=== PATIENT | female | born 1945 | race Caucasian/White ===

== ENCOUNTER → 2019-01-22 | Outpatient (CLI) | payer MEDICARE, OTHER ==
--- NOTE | 2019-01-22 15:46 | KCIC ---
MR of the left wrist HISTORY: Left wrist pain and swelling this week. Possible cyst. TECHNIQUE: Routine multiplanar sequences are obtained. FINDINGS: Severe motion degradation. Surface marker placed at the area of concern. No organized fluid collection or measurable cyst is seen in this region. Mild generalized soft tissue and muscle edema around the wrist. Triangular fibrocartilage, scapholunate ligament and lunotriquetral ligament cannot be adequately evaluated due to the motion. Extensor and flexor tendons appear grossly intact without substantial tendon sheath fluid accumulation. No definite aggressive bone destruction or acute fracture. Small effusions at the distal radioulnar joint, radiocarpal joint and metacarpal compartments. IMPRESSION: 1. Exam severely limited by motion degradation. 2. Small joint effusions. 3. Generalized soft tissue and muscle edema could be posttraumatic or due to nonspecific inflammatory/infectious etiology. 4. No measurable cyst in the area of concern. Electronically signed by: Keegan Hernandez MD (01/22/2019 3:43 PM) [id number]
== END | disposition home or self-care (01) ==
LOC: KCIC MRI 12:42
PROVIDERS: ATTEND Family Medicine
DX: L03.116 Cellulitis of left lower limb (principal); M25.432 Effusion, left wrist
CPT/HCPCS: 73221

== ENCOUNTER 2019-04-15 16:52 | Inpatient (IN) | payer MEDICARE, OTHER ==
[~2019-04-15] VITALS: Ht 160 cm; Wt 92.6 kg
[2019-04-15] VITALS (11 sets, daily range): BP systolic 108–170; BP diastolic 52–80
[2019-04-15] MEDS ORDERED: IPRA3AMP29 NEB (18:14)
[2019-04-15] MEDS ORDERED: LACT1CAP2 PO (18:14)
[2019-04-15] MEDS ORDERED: ATOR40TA59 PO (18:14)
[2019-04-15] MEDS ORDERED: INSU100V6 SQ (18:14)
[2019-04-15] MEDS ORDERED: CYCL5TAB PO (18:14)
[2019-04-15] MEDS ORDERED: BUME1TAB3 IV (18:14)
[2019-04-15] MEDS ORDERED: CHOL500050 PO (18:14)
[2019-04-15] MEDS ORDERED: DOCU100C28 PO (18:14)
[2019-04-15] MEDS ORDERED: INSU100V8 SQ (18:14)
[2019-04-15] MEDS ORDERED: FLUO20TA11 PO (18:14)
[2019-04-15] MEDS ORDERED: LOSA-73 PO (18:14)
[2019-04-15] MEDS ORDERED: ASPI81TA59 PO (18:14)
[2019-04-15] MEDS ORDERED: ACET500T68 PO (18:14)
[2019-04-15] MEDS ORDERED: GABA600T7 PO (18:14)
[2019-04-15] MEDS ORDERED: ENOX100D SQ (18:14)
[2019-04-15] MEDS ORDERED: OXYB5TAB10 PO (18:15)
[2019-04-15] MEDS ORDERED: PANT40TA77 PO (18:15)
[2019-04-15] MEDS ORDERED: TRAM50TA PO (18:15)
[2019-04-15] MEDS ORDERED: ROPI1TAB2 PO (18:15)
[2019-04-15] MEDS ORDERED: ZOLP5TAB PO (18:15)
[2019-04-15] MEDS ORDERED: ONDA8TAB15 PO (18:15)
[2019-04-15] MEDS ORDERED: OMEG-129 PO (18:15)
[2019-04-15] MEDS ORDERED: PIPE3.3734 IV (18:15)
[2019-04-15] MEDS ORDERED: MULT-114 PO (18:15)
[2019-04-15] MEDS ORDERED: SIME80TA14 PO (18:15)
[2019-04-15] MEDS ORDERED: MIDO5TAB4 PO (18:15)
[2019-04-15] MEDS ORDERED: VANC125C3 IV (18:15)
[2019-04-15] MEDS ORDERED: POTA10TA6 PO (18:15)
[2019-04-15] MEDS ORDERED: DIPH25TA24 PO (18:15)
[2019-04-15] MEDS ORDERED: MECL-75 PO (18:15)
[2019-04-15] MEDS ORDERED: PIP/TAZO PER PHARMACY MC PRN (18:30)
[2019-04-15] MEDS ORDERED: ACETAMINOPHEN 500 MG TABLET PO PRN (18:30)
[2019-04-15] MEDS ORDERED: ZOLPIDEM 5 MG TABLET. PO PRN (18:30)
[2019-04-15] MEDS ORDERED: ONDANSETRON ODT 4 MG TAB.RAPDIS. PO PRN (19:00)
[2019-04-15] MEDS ORDERED: MECLIZINE HCL 12.5 MG TABLET. PO PRN (19:00)
[2019-04-15] MEDS: VANCOMYCIN PER PHARMACY MC PRN (19:03)
[2019-04-15] MEDS: IPRATRPIUM/ALBUTEROL 0.5/2.5MG 3 ML NEBU. NEB SCH (20:00)
[2019-04-15] MEDS: SIMETHICONE 80 MG TAB.CHEW PO SCH (21:00)
[2019-04-15] MEDS: INSULIN GLARGINE SYRINGE. SQ SCH (21:00)
[2019-04-15] MEDS: LACTOBACILLUS RHAMNOSUS GG 1 CAPSULE. PO SCH (22:58)
[2019-04-15] MEDS: FLUoxetine HCL 20 MG CAPSULE PO SCH (22:58)
[2019-04-15] MEDS: diphenhydrAMINE HCL 25 MG CAPSULE PO SCH (22:58)
[2019-04-15] MEDS: CYCLOBENZAPRINE 10 MG TABLET. PO SCH ×2 (22:58→23:07)
[2019-04-15] MEDS: ATORVASTATIN CALCIUM 40 MG TABLET. PO SCH (22:58)
[2019-04-15] MEDS: DOCUSATE SODIUM 100 MG CAPSULE. PO SCH (22:58)
[2019-04-15] MEDS: rOPINIRole 1 MG TABLET. PO SCH (22:58)
[2019-04-15] MEDS: traMADol 50 MG TABLET PO SCH (22:59)
[2019-04-15] MEDS: VANCOMYCIN 1.25 GM in IV NORMAL SALINE 250ML 250 ML IV SCH (23:00)
[2019-04-15] MEDS: PIPERACILLIN/TAZOBACTAM 3.375 GM in IV NORMAL SALINE 50ML 50 ML IV SCH (23:00)
[2019-04-15] MEDS: GABAPENTIN 300 MG CAPSULE. PO SCH (23:07)
[2019-04-15] MEDS: OXYBUTYNIN CHLORIDE 5 MG TABLET PO SCH (23:07)
[2019-04-16] VITALS (30 sets, daily range): BP systolic 72–177; BP diastolic 46–96
[2019-04-16] MEDS: PIPERACILLIN/TAZOBACTAM 3.375 GM in IV NORMAL SALINE 50ML 50 ML IV SCH ×4 (03:19→18:04)
[2019-04-16 05:19] LABS: BASO % 1 % (0-3); EOS % 1 % (0-3); HEMOGLOBIN 9.5 g/dL (12.0-15.5); LYMPH # 0.4 x10^3/uL (1.0-4.8); LYMPH % 10 % (24-48); MEAN CORPUSCULAR HEMOGLOBIN 27 pg (25-35); MEAN CORPUSCULAR HGB CONC 32 g/dL (31-37); MEAN CORPUSCULAR VOLUME 85 fL (79-100); MONO # 0.3 x10^3/uL (0.0-1.1); MONO % 8 % (0-9); NEUT # 3.1 x10^3/uL (1.8-7.7); NEUT % 81 % (31-73); PLATELET COUNT 234 x10^3/uL (140-400); RED BLOOD COUNT 3.54 x10^6/uL (3.50-5.40); RED CELL DISTRIBUTION WIDTH 16.4 % (11.5-14.5); WHITE BLOOD COUNT 3.9 x10^3/uL (4.0-11.0)
[2019-04-16] MEDS: traMADol 50 MG TABLET PO SCH ×2 (05:47→20:52)
[2019-04-16 05:54] LABS: CALCIUM 8.2 mg/dL (8.5-10.1); CREATININE 1.1 mg/dL (0.6-1.0); GFR 48.4; POTASSIUM 3.7 mmol/L (3.5-5.1)
--- NOTE | 2019-04-16 07:38 | HP ---
ADMIT DATE: HISTORY OF PRESENT ILLNESS: The patient is a 74-year-old female patient, who was transferred yesterday from [facility], where she was admitted to the ICU. She actually originally presented to the Emergency Room of [facility] because of increased shortness of breath, where she was extensively evaluated. Her V/Q scan was positive with a high probability for pulmonary emboli. The patient was breathing in the 70 percentile, although with 4 L, she is up in the 90s. The patient is feeling a little better. The patient continued to desaturate during the night and she did bring her CPAP. Her lactic acid was also elevated. She was started on vancomycin and piperacillin for pneumonia as well as Lovenox and was transferred to [facility] ICU for further evaluation and treatment. She continued to be extremely tachypneic, desaturates on room air, requires FiO2 of 40% on BiPAP machine to maintain her oxygen saturation more than 90%. Her blood gases showed that her pH on the transfer was 7.37, pCO2 of 54, pO2 of 72, bicarbonate 31 and oxygen saturation was 93% on FiO2 of 40%. Her influenza A and B were negative and her chemistry was mostly unremarkable. PAST MEDICAL HISTORY: Significant for hypertension; chronic diastolic congestive heart failure, ejection fraction an echocardiogram done on 08/01 showed preserved left ventricular systolic function; she has type 2 diabetes; hyperlipidemia. PAST SURGICAL HISTORY: Significant for apparently partial colectomy and colostomy. She was unable to mention other surgical procedures. ALLERGIES: SHE IS ALLERGIC TO ADHESIVE TAPE, IODINE AND LIRAGLUTIDE. MEDICATIONS: She is currently on the following medications: She is on diphenhydramine 25 mg twice a day, ipratropium bromide/albuterol sulfate twice a day, midodrine 5 mg twice a day, cyclobenzaprine 5 mg twice a day, atorvastatin calcium 40 mg at bedtime, omega-3 fatty acid 1000 mg capsules once a day, losartan potassium 50 mg daily, aspirin 81 mg once a day, tramadol 50 mg twice a day, gabapentin 600 mg twice a day, fluoxetine 20 mg twice a day, Ambien 5 mg at bedtime, Requip 1 mg twice a day, torsemide 10 mg once a day, potassium 8 mEq once a day, she is on simethicone 125 mg twice a day, docusate sodium 100 mg at bedtime, meclizine 25 mg every 8 hours, omeprazole 40 mg twice a day. FAMILY HISTORY: Noncontributory. SOCIAL HISTORY: She is , lives with her . REVIEW OF SYSTEMS: As per history of present illness. PHYSICAL EXAMINATION: GENERAL: On arrival to the ICU in [facility], the patient was somewhat pale. No jaundice, cyanosis or thyromegaly. No jugular venous distention. No lower limb edema. VITAL SIGNS: Her heart rate was 88, blood pressure was 122/58, temperature was 98.5, respiratory rate was 18 and oxygen saturation was 93% on BiPAP machine with an FiO2 of 40%. HEAD, EYES, EARS, NOSE AND THROAT: Normocephalic, atraumatic. NECK: Supple. HEART: Showed normal first and second heart sounds. No gallop or murmur. CHEST: Clear to auscultation. No crepitation or rhonchi. ABDOMEN: Distended, soft, nontender. NEUROLOGICAL: She is awake, alert, responding appropriately. All cranial nerves intact. EXTREMITIES: She moves extremities without difficulty. LABORATORY DATA: Her lab work at [facility] showed a white cell count 5800, hemoglobin 9.2, hematocrit 29, MCV 84 and platelet count 272,000 with normal manual differential. Her chemistry showed a serum sodium 136, potassium 3.8, chloride 99, bicarbonate 29, anion gap of 8, BUN 18, creatinine 1.1, estimated GFR was 48 mL per minute, her glucose was 214, calcium was 8.2. Total bilirubin, AST, ALT, alkaline phosphatase were normal. CK was only 216. Troponin was 0.049. Beta natriuretic peptide was 4067. Total protein 6, albumin 2.2. Her blood gases showed a pH of 7.37, pCO2 of 54, pO2 of 72, bicarbonate 31, oxygen saturation was 93% on FiO2 of 40%. Her influenza A and B were negative. Her V/Q scan showed that the patient has mismatch defects at the right lung base, high probability for pulmonary embolism. She did have a chest x-ray, which basically showed diffuse right greater than left central predominant interstitial and alveolar infiltrates and prominent cardiac silhouette. She had Doppler venous ultrasound of both lower extremities, which showed no evidence of deep vein thrombosis. The repeat chest x-ray showed that the cardiomediastinal silhouette is similar in appearance; there is increased alveolar airspace disease in the right lung base; patchy interstitial opacities are noted at the left lung base. ASSESSMENT AND PLAN: The patient was transferred to [facility] with acute hypoxic respiratory failure, bilateral pneumonic infiltrates, and high probability V/Q scan for pulmonary embolism. She was continued on vancomycin and Zosyn, continued on Lovenox 1 mg/kg subcutaneously twice a day. We will continue obviously with nebulized albuterol and Atrovent and all other medications. We will consult the bark peeler and perhaps also the header set up operator. She had an element of possible [id number] diastolic congestive heart failure. SAMY OCONNOR MD DR: TRACEE/eduard JOB#: [id number] / [id number]
[2019-04-16] MEDS ORDERED: MIDODRINE 5 MG TABLET PO SCH (08:00)
[2019-04-16] MEDS: IPRATRPIUM/ALBUTEROL 0.5/2.5MG 3 ML NEBU. NEB SCH ×4 (08:13→20:34)
[2019-04-16] MEDS: ASPIRIN CHEWABLE 81 MG TABLET. PO SCH (08:19)
[2019-04-16] MEDS: rOPINIRole 1 MG TABLET. PO SCH ×2 (08:19→20:51)
[2019-04-16] MEDS: diphenhydrAMINE HCL 25 MG CAPSULE PO SCH ×2 (08:19→20:52)
[2019-04-16] MEDS: CYCLOBENZAPRINE 10 MG TABLET. PO SCH ×2 (08:19→20:51)
[2019-04-16] MEDS: GABAPENTIN 300 MG CAPSULE. PO SCH ×2 (08:19→20:51)
[2019-04-16] MEDS: FLUoxetine HCL 20 MG CAPSULE PO SCH ×2 (08:20→20:52)
[2019-04-16] MEDS: MULTIVITAMIN with MINERAL TABLET. PO SCH (08:20)
[2019-04-16] MEDS: SIMETHICONE 80 MG TAB.CHEW PO SCH ×2 (08:20→20:51)
[2019-04-16] MEDS: LOSARTAN POTASSIUM 50 MG TABLET. PO SCH (08:21)
[2019-04-16] MEDS: POTASSIUM CHLORIDE 10 MEQ TABLET.ER. PO SCH (08:21)
[2019-04-16] MEDS: LACTOBACILLUS RHAMNOSUS GG 1 CAPSULE. PO SCH ×2 (08:21→20:51)
[2019-04-16] MEDS: PANTOPRAZOLE 40 MG TABLET.DR. PO SCH (08:21)
[2019-04-16] MEDS: BUMETANIDE 1 MG/4 ML VIAL. IV SCH ×2 (08:22→15:55)
[2019-04-16] MEDS: OXYBUTYNIN CHLORIDE 5 MG TABLET PO SCH ×3 (08:23→20:51)
[2019-04-16] MEDS: INSULIN GLARGINE SYRINGE. SQ SCH ×2 (08:23→20:52)
[2019-04-16] MEDS: INSULIN LISPRO 300 UNITS/3 ML VIAL. SQ SCH ×3 (08:25→18:06)
--- NOTE | 2019-04-16 08:43 | PN ---
DATE: 04/16/2019 SUBJECTIVE: The patient is a 74-year-old female patient who was transferred yesterday from [facility] where she was admitted with acute hypoxic respiratory failure, bilateral pulmonary infiltrate and high probability V/Q scan for pulmonary embolism. She was started on antibiotics in the form of vancomycin and Zosyn as well as Lovenox and was transferred to [facility] as she continued to desaturate and might require eventually intubation. She was on BiPAP machine that she apparently refused to keep it last night. When I saw her this morning, she was resting slightly propped up in bed, continued to be slightly tachypneic, but denied any chest pain. She is maintaining her oxygen saturation at 90% on 3 liters of oxygen by nasal cannula. PHYSICAL EXAMINATION: GENERAL: When I examined her, she was pale, but no jaundice, cyanosis or thyromegaly. No jugular venous distention. No lower limb edema. VITAL SIGNS: Her heart rate was 90, blood pressure was 141/55, temperature 97.8, respiratory rate 25, and oxygen saturation was 87% on room air, 90% on 3 liters of oxygen by nasal cannula. HEAD, EYES, EARS, NOSE AND THROAT: Showed normocephalic, atraumatic. NECK: Supple. HEART: Showed normal first and second heart sounds. No gallop or murmur. CHEST: Showed central trachea, equal bilateral expansion, air entry, vesicular sounds. I really could not appreciate any crepitation or rhonchi anteriorly. She has bilateral basal crepitation posteriorly. ABDOMEN: Distended, soft, nontender. NEUROLOGIC: She is awake, alert, responding appropriately. All cranial nerves intact. She moves all extremities without difficulty. LABORATORY DATA: Her lab work this morning showed a serum sodium 138, potassium 3.7, chloride 100, bicarbonate 34, anion gap of 4, BUN 17, creatinine was 1.1, estimated GFR was 48 mL per minute. Her glucose was 158, calcium was 8.2. White cell count was 3900, hemoglobin 9.5, hematocrit 30, MCV 85 and platelet count of 234,000. ASSESSMENT: In summary, this is a 74-year-old female patient who was transferred from [facility] with: 1. Acute hypoxic respiratory failure. 2. Chronic obstructive pulmonary disease exacerbation. 3. Bilateral lung infiltrate. 4. High probability V/Q scan for pulmonary embolism. CT angio of the chest could not be done as the patient is ALLERGIC TO IODINE AND IODINE CONTAINING PRODUCTS. She is also known to have chronic diastolic congestive heart failure as well as hyperlipidemia. PLAN: My plan is to obviously continue with all her medications. Continue with IV antibiotic. Continue with Lovenox. I will consult the director of medicare as well as the global professional as I feel that heart failure is probably contributing to her clinical presentation. I will discuss with Dr. Moreira whether it is worthwhile to desensitize her with steroids to do the CT angiogram to confirm or refute the pulmonary embolism. SAMY OCONNOR MD DR: TRACEE/eduard JOB#: [id number] / [id number]
[2019-04-16] MEDS: OMEGA-3 FATTY ACIDS/FISH OIL 1,000 MG CAPSULE. PO SCH (09:00)
--- NOTE | 2019-04-16 10:52 | PDOC2 ---
MICHELLE RANDOLPH DECK SCALER 04/16/19 1052: CARDIAC CONSULT DATE OF CONSULT Date of Consult DATE: 04/16/19 TIME: 10:30 REASON FOR CONSULT Reason for Consult: CHF REFERRING PHYSICIAN Referring Physician: Julian SOURCE Source: Chart review, Patient HISTORY OF PRESENT ILLNESS HISTORY OF PRESENT ILLNESS This is a 74 yo female admitted initially at [facility] then transferred to [facility] for further treatment of multiple issues including pneumonia, AECOPD and potentially PE. CTA chest could not be done due to iodine allergy. Reports the last 4 days she has been getting increasingly SOA. She has been coughing but could not expectorate. Had some chills but no recorded fever. No significant leg swelling. Denies any chest pain. She did have some bowel obstruction treated at [facility] 2 weeks ago. Presently she is still SOA and still coughing. Lately she has been weak and her appetite has been off. PAST MEDICAL HISTORY Cardiovascular: AFIB, CAD, CHF, HTN, Hyperlipidemia Pulmonary: COPD, Other ([place]) CENTRAL NERVOUS SYSTEM: Other (No pertinent history) GI: GERD, Inflam bowel disease (chrons) Heme/Onc: Anemia NOS Hepatobiliary: No pertinent hx Psych: Anxiety Musculoskeletal: Osteoarthritis Rheumatologic: No pertinent hx Infectious disease: No pertinent hx ENT: No pertinent hx Renal/: Chronic renal insuff Endocrine: Diabetes (2) Dermatology: No pertinent hx PAST SURGICAL HISTORY Past Surgical History: Cataract Removal, Total knee replacement (bilateral), Colectomy, Other (cardiac ablation; ileostomy; PCI/stent) FAMILY HISTORY Family History: Coronary Artery Disease SOCIAL HISTORY Smoke: Quit ALCOHOL: none Drugs: None Lives: with Family CURRENT MEDICATIONS CURRENT MEDICATIONS Current Medications Medications (Trade) Dose Ordered Sig/Phillip Route PRN Reason Start Time Stop Time Status Last Admin Dose Admin Aspirin (Children'S Aspirin) 81 mg DAILY PO 04/16/19 09:00 04/16/19 08:19 Atorvastatin Calcium (Lipitor) 40 mg HS PO 04/15/19 21:00 04/15/19 22:58 Docusate Sodium (Colace) 100 mg QHS PO 04/15/19 21:00 04/15/19 22:58 Enoxaparin Sodium (Lovenox 100mg Syringe) 90 mg BID SQ 04/15/19 21:00 04/16/19 08:23 Albuterol/ Ipratropium (Duoneb) 3 ml RTQID NEB 04/15/19 20:00 04/16/19 08:13 Losartan Potassium (Cozaar) 50 mg DAILY PO 04/16/19 09:00 04/16/19 08:21 Midodrine (Proamatine) 5 mg BIDWMEALS PO 04/16/19 08:00 04/16/19 08:20 Oxybutynin Chloride (Ditropan) 5 mg TID PO 04/15/19 21:00 04/16/19 08:23 Pantoprazole Sodium (Protonix) 40 mg DAILYAC PO 04/16/19 07:30 04/16/19 08:21 Ropinirole HCl (Requip) 1 mg BID PO 04/15/19 21:00 04/16/19 08:19 Simethicone (Gas-X) 120 mg BID PO 04/15/19 21:00 04/16/19 08:20 Tramadol HCl (Ultram) 50 mg BID PO 04/15/19 21:00 04/16/19 05:47 Zolpidem Tartrate (Ambien) 5 mg PRN QHS PRN PO INSOMNIA 04/15/19 18:30 04/15/19 23:07 Cyclobenzaprine HCl (Flexeril) 5 mg BID PO 04/15/19 19:00 04/16/19 08:19 Diphenhydramine HCl (Benadryl) 25 mg BID PO 04/15/19 21:00 04/16/19 08:19 Fluoxetine HCl (PROzac) 20 mg BID PO 04/15/19 21:00 04/16/19 08:20 Gabapentin (Neurontin) 600 mg BID PO 04/15/19 21:00 04/16/19 08:19 Lactobacillus Rhamnosus (Culturelle) 1 cap BID PO 04/15/19 21:00 04/16/19 08:21 Multivitamins (Thera M Plus) 1 tab DAILY PO 04/16/19 09:00 04/16/19 08:20 Fish Oil (Fish Oil) 1,000 mg DAILY PO 04/16/19 09:00 04/16/19 09:00 Potassium Chloride (Klor-Con) 10 meq DAILYWBKFT PO 04/16/19 08:00 04/16/19 08:21 Vancomycin HCl (Vanco Per Pharmacy) 1 each PRN DAILY PRN MC SEE COMMENTS 04/15/19 18:30 04/15/19 19:03 Bumetanide (Bumex) 1 mg BID92 IV 04/16/19 09:00 04/16/19 08:22 Insulin Human Lispro (HumaLOG) 0-9 UNITS TIDWMEALS SQ 04/16/19 08:00 04/16/19 08:25 Piperacillin Sod/ Tazobactam Sod 3.375 gm/Sodium Chloride 50 ml @ 100 mls/hr Q6H IV 04/15/19 20:00 04/16/19 05:47 Vancomycin HCl 1.25 gm/Sodium Chloride 250 ml @ 167 mls/hr Q24H IV 04/15/19 22:00 04/15/19 23:00 ALLERGIES ALLERGIES: Coded Allergies: Iodine and Iodide Containing Produc (Verified Allergy, Severe, 04/15/19) adhesive tape (Verified Allergy, Intermediate, 04/15/19) liraglutide (Verified Allergy, Intermediate, 04/15/19) ROS Review of System 14 point ROS evaluated with pertinent positives noted per HPI PHYSICAL EXAM General: Alert, Oriented X3, Cooperative, mild distress HEENT: Atraumatic, Mucous membr. moist/pink Lungs: Other (diffuse rhonchi with some wheeze) Heart: Regular rate (SR), Other (distnat heart sounds, unable to appreciate fully due to adventitious sounds) Abdomen: Soft, No tenderness Extremities: No cyanosis, No edema Skin: No breakdown, No significant lesion Neuro: Normal speech, Sensation intact Psych/Mental Status: Mental status NL, Mood NL MUSCULOSKELETAL: Osteoarthritic changes both hands VITALS/I&O VITALS/I&O: Vital Signs Date Time Temp Pulse Resp B/P (MAP) Pulse Ox O2 Delivery O2 Flow Rate FiO2 04/16/19 08:21 104 140/57 04/16/19 08:14 92 Nasal Cannula 3.0 04/16/19 06:47 28 04/16/19 04:00 97.8 97.8 I & O 04/15/19 04/15/19 04/16/19 15:00 23:00 07:00 Intake Total 100 ml 450 ml Output Total 700 ml 285 ml Balance -600 ml 165 ml LABS Lab: Laboratory Tests Test 04/15/19 23:22 04/16/19 05:05 04/16/19 08:17 Glucose (Fingerstick) 97 mg/dL (70-99) 164 mg/dL (70-99) H White Blood Count 3.9 x10^3/uL (4.0-11.0) L Red Blood Count 3.54 x10^6/uL (3.50-5.40) Hemoglobin 9.5 g/dL (12.0-15.5) L Hematocrit 30.0 % (36.0-47.0) L Mean Corpuscular Volume 85 fL (79-100) Mean Corpuscular Hemoglobin 27 pg (25-35) Mean Corpuscular Hemoglobin Concent 32 g/dL (31-37) Red Cell Distribution Width 16.4 % (11.5-14.5) H Platelet Count 234 x10^3/uL (140-400) Neutrophils (%) (Auto) 81 % (31-73) H Lymphocytes (%) (Auto) 10 % (24-48) L Monocytes (%) (Auto) 8 % (0-9) Eosinophils (%) (Auto) 1 % (0-3) Basophils (%) (Auto) 1 % (0-3) Neutrophils # (Auto) 3.1 x10^3/uL (1.8-7.7) Lymphocytes # (Auto) 0.4 x10^3/uL (1.0-4.8) L Monocytes # (Auto) 0.3 x10^3/uL (0.0-1.1) Eosinophils # (Auto) 0.0 x10^3/uL (0.0-0.7) Basophils # (Auto) 0.0 x10^3/uL (0.0-0.2) Sodium Level 138 mmol/L (136-145) Potassium Level 3.7 mmol/L (3.5-5.1) Chloride Level 100 mmol/L (98-107) Carbon Dioxide Level 34 mmol/L (21-32) H Anion Gap 4 (6-14) L Blood Urea Nitrogen 17 mg/dL (7-20) Creatinine 1.1 mg/dL (0.6-1.0) H Estimated GFR (Cockcroft-Gault) 48.4 Glucose Level 158 mg/dL (70-99) H Calcium Level 8.2 mg/dL (8.5-10.1) L Laboratory Tests 04/16/19 05:05 Laboratory Tests 04/16/19 05:05 ASSESSMENT/PLAN ASSESSMENT/PLAN 1. AECOPD with with pneumonia 2. Acute on chronic diastolic CHF 3. V/Q high probability for PE: neg venous doppler for DVT 4. DM2 5. HTN: controlled 6. HLP 7. CAD: past stent about [address] [place] [facility] [place] 8. Hx of chrons: bowel obstruction treated at [facility] 2 weeks ago 9. Iodine allergy: rash. hence CTA was not done 10. Hx of AFIB: [place] [facility] Recommendations 1. Continue lovenox 2. Antibiiotic therapy on board. Pulmonary consult 3. diuretic therapy. TTE, EKG 4. Supportive care LIMA SNYDER MD 04/16/19 2014: CARDIAC CONSULT ASSESSMENT/PLAN ASSESSMENT/PLAN Patient seen and examined. Agree with above nurse practitioner note. Echocardiogram demonstrates normal LV function. Continue treatment for high risk V/Q scan suggestive of pulmonary embolus. Supportive care for now. We'll follow along. MICHELLE RANDOLPH APRN Apr 16, 2019 10:52 LIMA SNYDER MD Apr 16, 2019 20:14
--- NOTE | 2019-04-16 11:25 | EKG ---
[facility] [address] [place] [address] Test Date: 2019-04-16 Test Time: 11:22:12 Pat Name: SLIME WU Department: Room: 111 1 Gender: F Recruiting Scheduler: : 1945 Requested By: MICHELLE RANDOLPH Order Number: [id number] Reading MD: Measurements Intervals [place] Rate: 92 P: 0 MA: 194 QRS: 36 QRSD: 116 T: 36 QT: 384 QTc: 480 Interpretive Statements SINUS RHYTHM ATRIAL PREMATURE COMPLEX(ES) INCOMPLETE RIGHT BUNDLE BRANCH BLOCK PROLONGED QT NO SPECIFIC ECG ABNORMALITIES RI6.02 No previous ECG available for comparison
--- NOTE | 2019-04-16 12:30 | NUR ---
Urine turned to a pink/nagy color this AM. Pt producing adequate amount of urine. Pt on Lovenox BID so Dr. Us notified on color change. Dr. Us okay with color right now. May need bladder irrigation or urology consult if does not clear up.
[2019-04-16] MEDS: VANCOMYCIN PER PHARMACY MC PRN (12:44)
--- NOTE | 2019-04-16 13:11 | PDOC ---
PULMONARY PROGRESS NOTES Vitals Vital Signs Date Time Temp Pulse Resp B/P (MAP) Pulse Ox O2 Delivery O2 Flow Rate FiO2 04/16/19 12:00 12.0 04/16/19 12:00 Venturi Mask 04/16/19 11:07 96 04/16/19 11:00 94 31 120/59 (79) 04/16/19 04:00 97.8 97.8 Labs Laboratory Tests Test 04/15/19 23:22 04/16/19 05:05 04/16/19 08:17 04/16/19 11:52 Glucose (Fingerstick) 97 mg/dL (70-99) 164 mg/dL (70-99) 138 mg/dL (70-99) White Blood Count 3.9 x10^3/uL (4.0-11.0) Red Blood Count 3.54 x10^6/uL (3.50-5.40) Hemoglobin 9.5 g/dL (12.0-15.5) Hematocrit 30.0 % (36.0-47.0) Mean Corpuscular Volume 85 fL (79-100) Mean Corpuscular Hemoglobin 27 pg (25-35) Mean Corpuscular Hemoglobin Concent 32 g/dL (31-37) Red Cell Distribution Width 16.4 % (11.5-14.5) Platelet Count 234 x10^3/uL (140-400) Neutrophils (%) (Auto) 81 % (31-73) Lymphocytes (%) (Auto) 10 % (24-48) Monocytes (%) (Auto) 8 % (0-9) Eosinophils (%) (Auto) 1 % (0-3) Basophils (%) (Auto) 1 % (0-3) Neutrophils # (Auto) 3.1 x10^3/uL (1.8-7.7) Lymphocytes # (Auto) 0.4 x10^3/uL (1.0-4.8) Monocytes # (Auto) 0.3 x10^3/uL (0.0-1.1) Eosinophils # (Auto) 0.0 x10^3/uL (0.0-0.7) Basophils # (Auto) 0.0 x10^3/uL (0.0-0.2) Sodium Level 138 mmol/L (136-145) Potassium Level 3.7 mmol/L (3.5-5.1) Chloride Level 100 mmol/L (98-107) Carbon Dioxide Level 34 mmol/L (21-32) Anion Gap 4 (6-14) Blood Urea Nitrogen 17 mg/dL (7-20) Creatinine 1.1 mg/dL (0.6-1.0) Estimated GFR (Cockcroft-Gault) 48.4 Glucose Level 158 mg/dL (70-99) Calcium Level 8.2 mg/dL (8.5-10.1) Laboratory Tests Test 04/15/19 23:22 04/16/19 05:05 04/16/19 08:17 04/16/19 11:52 Glucose (Fingerstick) 97 mg/dL (70-99) 164 mg/dL (70-99) 138 mg/dL (70-99) White Blood Count 3.9 x10^3/uL (4.0-11.0) Red Blood Count 3.54 x10^6/uL (3.50-5.40) Hemoglobin 9.5 g/dL (12.0-15.5) Hematocrit 30.0 % (36.0-47.0) Mean Corpuscular Volume 85 fL (79-100) Mean Corpuscular Hemoglobin 27 pg (25-35) Mean Corpuscular Hemoglobin Concent 32 g/dL (31-37) Red Cell Distribution Width 16.4 % (11.5-14.5) Platelet Count 234 x10^3/uL (140-400) Neutrophils (%) (Auto) 81 % (31-73) Lymphocytes (%) (Auto) 10 % (24-48) Monocytes (%) (Auto) 8 % (0-9) Eosinophils (%) (Auto) 1 % (0-3) Basophils (%) (Auto) 1 % (0-3) Neutrophils # (Auto) 3.1 x10^3/uL (1.8-7.7) Lymphocytes # (Auto) 0.4 x10^3/uL (1.0-4.8) Monocytes # (Auto) 0.3 x10^3/uL (0.0-1.1) Eosinophils # (Auto) 0.0 x10^3/uL (0.0-0.7) Basophils # (Auto) 0.0 x10^3/uL (0.0-0.2) Sodium Level 138 mmol/L (136-145) Potassium Level 3.7 mmol/L (3.5-5.1) Chloride Level 100 mmol/L (98-107) Carbon Dioxide Level 34 mmol/L (21-32) Anion Gap 4 (6-14) Blood Urea Nitrogen 17 mg/dL (7-20) Creatinine 1.1 mg/dL (0.6-1.0) Estimated GFR (Cockcroft-Gault) 48.4 Glucose Level 158 mg/dL (70-99) Calcium Level 8.2 mg/dL (8.5-10.1) Medications Active Scripts Medications Dose Route/Sig Max Daily Dose Days Date Category Tramadol Hcl 50 Mg Tablet 50 Mg PO BID 04/15/19 Reported Ropinirole Hcl 1 Mg Tablet 1 Mg PO BID 04/15/19 Reported Diphenhydramine Hcl 25 Mg Tablet 25 Mg PO BID 04/15/19 Reported Ambien (Zolpidem Tartrate) 5 Mg Tablet 5 Mg PO PRN QHS PRN 04/15/19 Reported Vancomycin Hcl 125 Mg Capsule 1.25 Gm IV DAILY 04/15/19 Reported Simethicone 80 Mg Tab.chew 120 Mg PO BID 04/15/19 Reported Klor-Con 10 (Potassium Chloride) 10 Meq Tablet.er 10 Meq PO DAILY 04/15/19 Reported Piperacil-Tazobact 3.375 Gm Vl (Piperacillin Sodium/Tazobactam) 3.375 Gm Vial 3.375 Gm IV Q6HRS 04/15/19 Reported Protonix (Pantoprazole Sodium) 40 Mg Tablet.dr 40 Mg PO DAILYAC 04/15/19 Reported Oxybutynin Chloride 5 Mg Tablet 5 Mg PO TID 04/15/19 Reported Ondansetron Odt (Ondansetron) 8 Mg Tab.rapdis 8 Mg PO PRN Q12HR PRN 04/15/19 Reported Steele-3 Fish Oil 1,000 mg Sfgl (Steele-3 Fatty Acids/Fish Oil) 1 Each Capsule 1 Cap PO DAILY 04/15/19 Reported Multivitamins With Minerals (Multivitamin With Minerals) 1 Each Tablet 1 Tab PO DAILY 04/15/19 Reported Midodrine Hcl 5 Mg Tablet 5 Mg PO BIDWMEALS 04/15/19 Reported Meclizine Hcl 25 Mg Tablet 25 Mg PO PRN Q8HRS PRN 04/15/19 Reported Losartan Potassium 50 Mg Tablet 50 Mg PO DAILY 04/15/19 Reported Acidophilus (Lactobacillus Acidophilus) 1 Each Capsule 1 Cap PO BID 04/15/19 Reported Duoneb 0.5-3(2.5) Mg/3 Ml (Albuterol/Ipratropium) 3 Ml Ampul.neb 3 Ml NEB QID 04/15/19 Reported Humalog (Insulin Lispro) 100 Unit/1 Ml Vial 0-9 Unit SQ TIDWMEALS 04/15/19 Reported Lantus (Insulin Glargine,Hum.rec.anlog) 100 Unit/1 Ml Vial 30 Unit SQ BID 04/15/19 Reported Gabapentin 600 Mg Tablet 600 Mg PO BID 04/15/19 Reported Fluoxetine Hcl 20 Mg Tablet 20 Mg PO BID 04/15/19 Reported Lovenox (Enoxaparin Sodium) 100 Mg/1 Ml Disp.syrin 90 Mg SQ BID 04/15/19 Reported Docusate Sodium 100 Mg Capsule 100 Mg PO QHS 04/15/19 Reported Cyclobenzaprine Hcl 5 Mg Tablet 5 Mg PO BID 04/15/19 Reported Vitamin D3 (Cholecalciferol (Vitamin D3)) 50,000 Unit Capsule 50,000 Unit PO WEEKLY 04/15/19 Reported Bumetanide 1 Mg Tablet 1 Mg IV BID 04/15/19 Reported Atorvastatin Calcium 40 Mg Tablet 40 Mg PO HS 04/15/19 Reported Acetaminophen 500 Mg Tablet 1,000 Mg PO PRN Q6HRS PRN 04/15/19 Reported Children's Aspirin (Aspirin) 81 Mg Tab.chew 81 Mg PO DAILY 04/15/19 Reported Impression . NOTE DICTATED THANKS SEE ORDERS D/W DR Clemente HOFF D/W SADE DOE MD Apr 16, 2019 13:11
--- NOTE | 2019-04-16 14:45 | NUR ---
SS following for discharge planning. SS reviewed pt chart. Pt is from home with spouse and is currently requiring oxygen. SS will continue to follow for discharge planning.
--- NOTE | 2019-04-16 16:27 | EKG ---
[facility] [address] [place] [address] Test Date: 2019-04-16 Test Time: 16:15:43 Pat Name: SLIME WU Department: Room: 111 1 Gender: F Fiscal Assistant: : 1945 Requested By: SAMY OCONNOR Order Number: [id number] Reading MD: Measurements Intervals [place] Rate: 140 P: ME: QRS: 39 QRSD: 118 T: 36 QT: 320 QTc: 492 Interpretive Statements IRREGULAR RHYTHM, NO P-WAVE FOUND ST & T ABNORMALITY, CONSIDER ANTERIOR ISCHEMIA OR LEFT VENTRICULAR STRAIN ABNORMAL ECG RI6.02 No previous ECG available for comparison
[2019-04-16] MEDS ORDERED: METOPROLOL TARTRATE 5 MG/5 ML VIAL. IVP ONE (16:30)
--- NOTE | 2019-04-16 16:43 | NUR ---
Around 1600, after breathing treatment administered, pt went into Afib RVR. EKG ordered to confirm. Pt sustained from 130-150 HR. ANITA Mcintosh paged and orders received to give Metoprolol 5mg IVP x1 now and re-assess. Metoprolol given at 1635.
--- NOTE | 2019-04-16 16:52 | CONS ---
DATE OF CONSULTATION: 04/16/2019 ATTENDING PHYSICIAN: Jenn Jordan MD CONSULTING PHYSICIAN: Sade Freeman MD REASON FOR CONSULTATION: The patient is seen in pulmonary consultation at the request of Dr. Jordan for acute respiratory failure. HISTORY OF PRESENT ILLNESS: The patient is a 74-year-old that has been short of air now for quite some time. Over the last 2-3 days, she has noticed some increasing shortness of air. Her O2 saturations were down in the 70s when she presented to the Emergency Department at [facility]. The patient was evaluated and underwent V/Q scan, which was reviewed, compatible with high probability scan. She is currently on anticoagulation. She had a chest x-ray, which revealed left lower lobe infiltrate, consolidation. She is also being treated for possibility of pneumonia. She is currently on BiPAP. Her white count was low at 3.9. The patient reports some shaking chills, no hemoptysis, no syncope or near syncopal episode. No paroxysmal nocturnal dyspnea or pedal edema. PAST MEDICAL HISTORY: Chronic heart failure, hypertension, COPD, type 2 diabetes, obesity, and hyperlipidemia. PAST SURGICAL HISTORY: Status post partial colectomy. ALLERGIES: LISTED TO IODINE AND LIRAGLUTIDE. MEDICATIONS: List from home was reviewed. FAMILY HISTORY: No family history of lung disorders. SOCIAL HISTORY: She quit tobacco in 1994. Does not wear oxygen at home. Denies any alcohol intake. REVIEW OF SYSTEMS: As indicated above, otherwise other systems could not be adequately reviewed. The patient is on BiPAP. CURRENT MEDICATION: List was reviewed. PHYSICAL EXAMINATION: VITAL SIGNS: Stable. O2 saturation currently on BiPAP 92%. HEENT: Eyes, the sclerae were nonicteric. NECK: Jugular venous distention could not be assessed secondary to body habitus. CHEST: Full expansion. LUNGS: Crackles and wheezes throughout both lung brink. CARDIOVASCULAR: Regular rate and rhythm with S1, S2. No S3. ABDOMEN: Soft, obese. EXTREMITIES: Minimal edema. NEUROLOGIC: The patient was awake, alert, following commands. A detailed neuro exam was not performed. LABORATORY DATA: Reviewed as indicated above. Chest x-ray and CT as indicated above. IMPRESSION: 1. Acute respiratory failure, multifactorial. 2. Pulmonary embolism. 3. Acute exacerbation of chronic obstructive pulmonary disease. 4. Possible pneumonia, gram negative/gram positive. 5. Abnormal chest x-ray. 6. Type 2 diabetes. 7. Obesity. 8. Coronary artery disease. 9. Chronic diastolic heart failure. PLAN: 1. Continue BiPAP. 2. Empiric antibiotics. 3. Lovenox b.i.d. 90 mg subcutaneous. 4. Continue home meds. 5. Monitor blood sugars. I do appreciate the privilege in sharing in the patient's care. SADE FREEMAN MD DR: JACK/eduard JOB#: [id number] / [id number]
--- NOTE | 2019-04-16 17:41 | NUR ---
Paged Dr. Oates regarding pt still in Afib RVR and Low BP reading now. Orders received to give Digoxin 250 mcg IVP x1 now and in 4HRS. Hold Metoprolol since BP not stable at this time.
[2019-04-16] MEDS ORDERED: DIGOXIN IV 500 MCG/2 ML AMPUL. IV ONE ×2 (18:00→22:00)
[2019-04-16] MEDS ORDERED: NOREPINEPHRINE VIAL 8 MG in IV DEXTROSE 5% 250 ML IV PRN (18:00)
--- NOTE | 2019-04-16 18:26 | CARD ---
MR#: [id number] Date of Study: 04/16/2019 Ordering Physician: MICHELLE RANDOLPH, Referring Physician: MICHELLE RANDOLPH, Tech: Leeanna Graves APPROVED REPORT EXAM: Two-dimensional and M-mode echocardiogram with Doppler and color Doppler. Other Information Quality : FairHR: 102bpm INDICATION Congestive Heart Failure RISK FACTORS Hypertension Hyperlipidemia Diabetes Smoking 2D DIMENSIONS RVDd2.8 (2.9-3.5cm)Left Atrium(2D)3.8 (1.6-4.0cm) IVSd1.4 (0.7-1.1cm)Aortic Root(2D)3.5 (2.0-3.7cm) LVDd4.7 (3.9-5.9cm)LVOT Diameter2.1 (1.8-2.4cm) PWd1.4 (0.7-1.1cm)LVDs2.4 (2.5-4.0cm) FS (%) 47.7 %SV79.6 ml LVEF(%)79.1 (>50%) Aortic Valve AoV Peak Stu.138.5cm/sAoV VTI24.0cm AO Peak GR.7.7mmHgLVOT VTI 18.42cm AO Mean GR.5mmHg Mitral Valve MV E Cremexhq381.1cm/sMV E Peak Gr.6mmHg MV DECEL [id number] A Kdxntsqi15.7cm/s MV E Mean Gr.2mmHgE/A Ratio2.8 Tricuspid Valve TR P. Lkahlbja478me/sRAP VJMWPVIC5koEi TR Peak Gr.50rqYmUXZL60fzOx LEFT VENTRICLE The left ventricle is normal size. There is moderate concentric left ventricular hypertrophy. The lef t ventricular systolic function is normal and the ejection fraction is within normal range. The Eject ion Fraction is 55-60%. Septal motion consistent with conduction abnormality. Otherwise, grossly norm al wall motion. The left ventricular diastolic function and filling is normal for age. RIGHT VENTRICLE The right ventricle is normal size. There is normal right ventricular wall thickness. The right ventr icular systolic function is normal. ATRIA The left atrium size is normal. The right atrium is borderline dilated. The interatrial septum is int act with no evidence for an atrial septal defect or patent foramen ovale as noted on 2-D or Doppler i maging. AORTIC VALVE The aortic valve is normal in structure and function. Doppler and Color Flow revealed no significant aortic regurgitation. There is no significant aortic valvular stenosis. MITRAL VALVE Mitral annular calcification is moderate. There is no evidence of mitral valve prolapse. There is no mitral valve stenosis. Doppler and Color-flow revealed trace mitral regurgitation. TRICUSPID VALVE The tricuspid valve is normal in structure and function. Doppler and Color Flow revealed trace tricus pid regurgitation with an estimated PAP of 28 mmHg. There is no tricuspid valve stenosis. PULMONIC VALVE The pulmonic valve is not well visualized. Doppler and Color Flow revealed trace pulmonic valvular re gurgitation. There is no pulmonic valvular stenosis. GREAT VESSELS The aortic root is normal in size. The IVC is normal in size and collapses >50% with inspiration. PERICARDIAL EFFUSION There is no evidence of significant pericardial effusion. Critical Notification Critical Value: No <Conclusion> The left ventricular systolic function is normal and the ejection fraction is within normal range. Th e Ejection Fraction is 55-60%. Septal motion consistent with conduction abnormality. Otherwise, grossly normal wall motion. Signed by : Tyrel Us, Electronically Approved : 04/16/2019 18:25:53
[2019-04-16] MEDS: DOCUSATE SODIUM 100 MG CAPSULE. PO SCH (20:51)
[2019-04-16] MEDS: ATORVASTATIN CALCIUM 40 MG TABLET. PO SCH (20:51)
[2019-04-16] MEDS: METOPROLOL TART IMMED RELEASE 25 MG TABLET. PO SCH (21:00)
[2019-04-16 21:42] LABS: VANC TR 10.9 mcg/mL (10.0-20.0)
[2019-04-16] MEDS: VANCOMYCIN 1.25 GM in IV NORMAL SALINE 250ML 250 ML IV SCH (23:29)
[2019-04-17] VITALS (28 sets, daily range): BP systolic 84–136; BP diastolic 48–76
[2019-04-17] MEDS: PIPERACILLIN/TAZOBACTAM 3.375 GM in IV NORMAL SALINE 50ML 50 ML IV SCH ×4 (00:17→22:21)
--- NOTE | 2019-04-17 00:47 | NUR ---
Patients HR continues to be 120s-140s. Dr. Us paged and updated on situation, no new orders received at this time as long as patient is feeling fine. Will continue to monitor.
[2019-04-17] MEDS: VANCOMYCIN PER PHARMACY MC PRN ×2 (01:13→15:18)
--- NOTE | 2019-04-17 01:13 | NUR ---
Pharmacy Vancomycin Dosing Note S:Consulted to monitor and dose vancomycin started 04/14/19. O:SLIME WU is a 74 year old F with Pneumonia . Height: 5 feet, 3 inches Weight: 91.775283 kg [place] Body Weight: 52.40 Adjusted Body Weight: 67.84 Dosing Weight: Actual Other Antibiotics: ZOSYN 3.375G IV Q6HRS LABS: Last BUN: 17 Last Creatinine: 1.1 Creatinine Clearance: 47 mL/min Last WBC: 3.9 Last Procalcitonin: - Tmax (past 24 hours): 97.8 Microbiology: BLOOD CX PENDING NO CX FROM [facility] I/O: 550/985 Drug Levels: Last Trough level: 10.9 on 04/16/19 at 2130 Last dose given 04/15/19 at 2300 Vancomycin Dosing: Loading Dose: 2000 mg x1 Dosing Weight: Actual Target Trough: 15-20 A: Based on: TROUGH P: 1. Begin Vancomycin 1250 mg IV q18h 2. Follow up Trough level on 04/19/19 at 0430 3. Pharmacy will continue to monitor, follow and adjust therapy as needed. JOSHUA PASCUAL RPH, 04/17/19 0113 Signed: 04/17/19 at 0113 by JOSHUA PASCUAL RPH PHA
--- NOTE | 2019-04-17 07:41 | PN ---
DATE: 04/17/2019 SUBJECTIVE: The patient is resting almost flat in no apparent distress. The nursing staff stated that she has been restless, pulling all her IV lines and she went into AFib with RVR, for which she received 2 doses of digoxin. The heart rate has slowed down, but the patient continues to be on digoxin. She is also on low-dose Levophed. PHYSICAL EXAMINATION: GENERAL: When I examined her this morning, she was somewhat pale, no jaundice, cyanosis or thyromegaly. No jugular venous distension. No lower limb edema. VITAL SIGNS: Her heart rate was 98, blood pressure was 101/64, temperature was 98, respiratory rate was 24, and oxygen saturation was 95% on 3 liters of oxygen. HEAD, EYES, EARS, NOSE AND THROAT: Showed normocephalic, atraumatic. NECK: Supple. HEART: Showed normal first and second heart sounds. No gallop or murmur. CHEST: Clear to auscultation. No crepitation or rhonchi. ABDOMEN: Distended, soft, nontender. NEUROLOGIC: She was sleepy, but arousable. All cranial nerves are intact. Moves extremities without difficulty. Her intake over the last 24 hours was 550, output was 985. LABORATORY DATA: As of yesterday showed her serum sodium was 138, potassium 3.7, chloride 100, bicarbonate 34, anion gap of 4, BUN 17, creatinine 1.1, estimated GFR was 48 mL per minute. Her glucose 158. Her white cell count was 3900, hemoglobin 9.5, hematocrit 30, MCV 85 and platelet count 234,000. ASSESSMENT: 1. Acute hypoxic respiratory failure. 2. Chronic obstructive pulmonary disease exacerbation. 3. Bilateral lung infiltrate consistent with probably community-acquired pneumonia versus acute on chronic diastolic congestive heart failure. 4. High probability V/Q scan for pulmonary embolism. CT angio of the chest could not be done because she is allergic to IODINE AND IODINE CONTAINING PRODUCTS. 5. New onset atrial fibrillation with rapid ventricular response. 6. Hyperlipidemia. PLAN: To continue with all her antibiotics. Continue with Lovenox. She probably needs to be on long-term anticoagulation given the fact that now she has 2 indication, the atrial fibrillation with RVR as well as high probability V/Q scan for pulmonary embolism. SAMY OCONNOR MD DR: TRACEE/eduard JOB#: [id number] / [id number]
[2019-04-17] MEDS: INSULIN LISPRO 300 UNITS/3 ML VIAL. SQ SCH ×3 (08:00→17:00)
[2019-04-17 08:39] LABS: CALCIUM 8.4 mg/dL (8.5-10.1); CREATININE 1.1 mg/dL (0.6-1.0); GFR 48.4; POTASSIUM 3.8 mmol/L (3.5-5.1)
[2019-04-17] MEDS: ASPIRIN CHEWABLE 81 MG TABLET. PO SCH (08:57)
[2019-04-17] MEDS: diphenhydrAMINE HCL 25 MG CAPSULE PO SCH ×2 (08:57→22:21)
[2019-04-17] MEDS: FLUoxetine HCL 20 MG CAPSULE PO SCH ×2 (08:57→22:21)
[2019-04-17] MEDS: MULTIVITAMIN with MINERAL TABLET. PO SCH (08:57)
[2019-04-17] MEDS: OXYBUTYNIN CHLORIDE 5 MG TABLET PO SCH ×3 (08:57→22:20)
[2019-04-17] MEDS: LACTOBACILLUS RHAMNOSUS GG 1 CAPSULE. PO SCH ×2 (08:57→22:20)
[2019-04-17] MEDS: CYCLOBENZAPRINE 10 MG TABLET. PO SCH ×2 (08:57→22:20)
[2019-04-17] MEDS: PANTOPRAZOLE 40 MG TABLET.DR. PO SCH (08:57)
[2019-04-17] MEDS: SIMETHICONE 80 MG TAB.CHEW PO SCH ×2 (08:57→22:33)
[2019-04-17] MEDS: GABAPENTIN 300 MG CAPSULE. PO SCH ×2 (08:57→22:20)
[2019-04-17] MEDS: rOPINIRole 1 MG TABLET. PO SCH ×2 (08:58→22:20)
[2019-04-17] MEDS: BUMETANIDE 1 MG/4 ML VIAL. IV SCH ×2 (08:58→14:15)
[2019-04-17] MEDS: POTASSIUM CHLORIDE 10 MEQ TABLET.ER. PO SCH (08:58)
[2019-04-17] MEDS: INSULIN GLARGINE SYRINGE. SQ SCH ×2 (08:58→22:22)
[2019-04-17] MEDS: traMADol 50 MG TABLET PO SCH ×2 (08:58→22:21)
[2019-04-17] MEDS: OMEGA-3 FATTY ACIDS/FISH OIL 1,000 MG CAPSULE. PO SCH (08:58)
[2019-04-17] MEDS: LOSARTAN POTASSIUM 50 MG TABLET. PO SCH (09:00)
[2019-04-17] MEDS: IPRATRPIUM/ALBUTEROL 0.5/2.5MG 3 ML NEBU. NEB SCH ×4 (09:41→21:17)
[2019-04-17 10:49] LABS: HEMATOCRIT 32.7 % (36.0-47.0); HEMOGLOBIN 10.2 g/dL (12.0-15.5); RED BLOOD COUNT 3.83 x10^6/uL (3.50-5.40); RED CELL DISTRIBUTION WIDTH 16.1 % (11.5-14.5); WHITE BLOOD COUNT 4.4 x10^3/uL (4.0-11.0)
--- NOTE | 2019-04-17 10:49 | PDOC ---
PULMONARY PROGRESS NOTES Subjective PT MORE AWAKE TODAY NOT MORE SOA NO INCREASE COUGH Vitals Vital Signs Date Time Temp Pulse Resp B/P (MAP) Pulse Ox O2 Delivery O2 Flow Rate FiO2 04/17/19 10:00 118 26 87/63 (71) 94 Nasal Cannula 2.0 04/17/19 08:00 98.0 98.0 ROS: No Nausea, No Chest Pain, No Abdominal Pain, No Increase Cough General: Alert Lungs: Crackles Cardiovascular: S1, S2 Abdomen: Soft Neuro Exam: Alert Extremities: No Edema Skin: Warm Labs Laboratory Tests Test 04/15/19 23:22 04/16/19 05:05 04/16/19 08:17 04/16/19 11:52 Glucose (Fingerstick) 97 mg/dL (70-99) 164 mg/dL (70-99) 138 mg/dL (70-99) White Blood Count 3.9 x10^3/uL (4.0-11.0) Red Blood Count 3.54 x10^6/uL (3.50-5.40) Hemoglobin 9.5 g/dL (12.0-15.5) Hematocrit 30.0 % (36.0-47.0) Mean Corpuscular Volume 85 fL (79-100) Mean Corpuscular Hemoglobin 27 pg (25-35) Mean Corpuscular Hemoglobin Concent 32 g/dL (31-37) Red Cell Distribution Width 16.4 % (11.5-14.5) Platelet Count 234 x10^3/uL (140-400) Neutrophils (%) (Auto) 81 % (31-73) Lymphocytes (%) (Auto) 10 % (24-48) Monocytes (%) (Auto) 8 % (0-9) Eosinophils (%) (Auto) 1 % (0-3) Basophils (%) (Auto) 1 % (0-3) Neutrophils # (Auto) 3.1 x10^3/uL (1.8-7.7) Lymphocytes # (Auto) 0.4 x10^3/uL (1.0-4.8) Monocytes # (Auto) 0.3 x10^3/uL (0.0-1.1) Eosinophils # (Auto) 0.0 x10^3/uL (0.0-0.7) Basophils # (Auto) 0.0 x10^3/uL (0.0-0.2) Sodium Level 138 mmol/L (136-145) Potassium Level 3.7 mmol/L (3.5-5.1) Chloride Level 100 mmol/L (98-107) Carbon Dioxide Level 34 mmol/L (21-32) Anion Gap 4 (6-14) Blood Urea Nitrogen 17 mg/dL (7-20) Creatinine 1.1 mg/dL (0.6-1.0) Estimated GFR (Cockcroft-Gault) 48.4 Glucose Level 158 mg/dL (70-99) Calcium Level 8.2 mg/dL (8.5-10.1) Test 04/16/19 12:45 04/16/19 18:03 04/16/19 20:50 04/16/19 21:20 Lactic Acid Level 0.8 mmol/L (0.4-2.0) Glucose (Fingerstick) 175 mg/dL (70-99) 122 mg/dL (70-99) Vancomycin Level Trough 10.9 mcg/mL (10.0-20.0) Vancomycin Last Dose Date 04/15/19 Vancomycin Last Dose Time 2300 Test 04/17/19 07:55 04/17/19 08:55 Sodium Level 139 mmol/L (136-145) Potassium Level 3.8 mmol/L (3.5-5.1) Chloride Level 99 mmol/L (98-107) Carbon Dioxide Level 34 mmol/L (21-32) Anion Gap 6 (6-14) Blood Urea Nitrogen 16 mg/dL (7-20) Creatinine 1.1 mg/dL (0.6-1.0) Estimated GFR (Cockcroft-Gault) 48.4 Glucose Level 128 mg/dL (70-99) Calcium Level 8.4 mg/dL (8.5-10.1) Glucose (Fingerstick) 107 mg/dL (70-99) Laboratory Tests Test 04/16/19 11:52 04/16/19 12:45 04/16/19 18:03 04/16/19 20:50 Glucose (Fingerstick) 138 mg/dL (70-99) 175 mg/dL (70-99) 122 mg/dL (70-99) Lactic Acid Level 0.8 mmol/L (0.4-2.0) Test 04/16/19 21:20 04/17/19 07:55 04/17/19 08:55 Vancomycin Level Trough 10.9 mcg/mL (10.0-20.0) Vancomycin Last Dose Date 04/15/19 Vancomycin Last Dose Time 2300 Sodium Level 139 mmol/L (136-145) Potassium Level 3.8 mmol/L (3.5-5.1) Chloride Level 99 mmol/L (98-107) Carbon Dioxide Level 34 mmol/L (21-32) Anion Gap 6 (6-14) Blood Urea Nitrogen 16 mg/dL (7-20) Creatinine 1.1 mg/dL (0.6-1.0) Estimated GFR (Cockcroft-Gault) 48.4 Glucose Level 128 mg/dL (70-99) Calcium Level 8.4 mg/dL (8.5-10.1) Glucose (Fingerstick) 107 mg/dL (70-99) Medications Active Scripts Medications Dose Route/Sig Max Daily Dose Days Date Category Tramadol Hcl 50 Mg Tablet 50 Mg PO BID 04/15/19 Reported Ropinirole Hcl 1 Mg Tablet 1 Mg PO BID 04/15/19 Reported Diphenhydramine Hcl 25 Mg Tablet 25 Mg PO BID 04/15/19 Reported Ambien (Zolpidem Tartrate) 5 Mg Tablet 5 Mg PO PRN QHS PRN 04/15/19 Reported Vancomycin Hcl 125 Mg Capsule 1.25 Gm IV DAILY 04/15/19 Reported Simethicone 80 Mg Tab.chew 120 Mg PO BID 04/15/19 Reported Klor-Con 10 (Potassium Chloride) 10 Meq Tablet.er 10 Meq PO DAILY 04/15/19 Reported Piperacil-Tazobact 3.375 Gm Vl (Piperacillin Sodium/Tazobactam) 3.375 Gm Vial 3.375 Gm IV Q6HRS 04/15/19 Reported Protonix (Pantoprazole Sodium) 40 Mg Tablet.dr 40 Mg PO DAILYAC 04/15/19 Reported Oxybutynin Chloride 5 Mg Tablet 5 Mg PO TID 04/15/19 Reported Ondansetron Odt (Ondansetron) 8 Mg Tab.rapdis 8 Mg PO PRN Q12HR PRN 04/15/19 Reported [place]-3 Fish Oil 1,000 mg Sfgl ([place]-3 Fatty Acids/Fish Oil) 1 Each Capsule 1 Cap PO DAILY 04/15/19 Reported Multivitamins With Minerals (Multivitamin With Minerals) 1 Each Tablet 1 Tab PO DAILY 04/15/19 Reported Midodrine Hcl 5 Mg Tablet 5 Mg PO BIDWMEALS 04/15/19 Reported Meclizine Hcl 25 Mg Tablet 25 Mg PO PRN Q8HRS PRN 04/15/19 Reported Losartan Potassium 50 Mg Tablet 50 Mg PO DAILY 04/15/19 Reported Acidophilus (Lactobacillus Acidophilus) 1 Each Capsule 1 Cap PO BID 04/15/19 Reported Duoneb 0.5-3(2.5) Mg/3 Ml (Albuterol/Ipratropium) 3 Ml Ampul.neb 3 Ml NEB QID 04/15/19 Reported Humalog (Insulin Lispro) 100 Unit/1 Ml Vial 0-9 Unit SQ TIDWMEALS 04/15/19 Reported Lantus (Insulin Glargine,Hum.rec.anlog) 100 Unit/1 Ml Vial 30 Unit SQ BID 04/15/19 Reported Gabapentin 600 Mg Tablet 600 Mg PO BID 04/15/19 Reported Fluoxetine Hcl 20 Mg Tablet 20 Mg PO BID 04/15/19 Reported Lovenox (Enoxaparin Sodium) 100 Mg/1 Ml Disp.syrin 90 Mg SQ BID 04/15/19 Reported Docusate Sodium 100 Mg Capsule 100 Mg PO QHS 04/15/19 Reported Cyclobenzaprine Hcl 5 Mg Tablet 5 Mg PO BID 04/15/19 Reported Vitamin D3 (Cholecalciferol (Vitamin D3)) 50,000 Unit Capsule 50,000 Unit PO WEEKLY 04/15/19 Reported Bumetanide 1 Mg Tablet 1 Mg IV BID 04/15/19 Reported Atorvastatin Calcium 40 Mg Tablet 40 Mg PO HS 04/15/19 Reported Acetaminophen 500 Mg Tablet 1,000 Mg PO PRN Q6HRS PRN 04/15/19 Reported Children's Aspirin (Aspirin) 81 Mg Tab.chew 81 Mg PO DAILY 04/15/19 Reported Impression . IMPRESSION: 1. Acute respiratory failure, multifactorial. 2. Pulmonary embolism. 3. Acute exacerbation of chronic obstructive pulmonary disease. 4. Possible pneumonia, gram negative/gram positive. 5. Abnormal chest x-ray. 6. Type 2 diabetes. 7. Obesity. 8. Coronary artery disease. 9. Chronic diastolic heart failure. Plan . PRN BIPAP OK TO TRANSFER OUT OF ICU ANTI BX D/W 1. Continue BiPAP. 2. Empiric antibiotics. 3. Lovenox b.i.d. 90 mg subcutaneous. 4. Continue home meds. 5. Monitor blood sugars. SADE FREEMAN MD Apr 17, 2019 10:49
[2019-04-17] MEDS: METOPROLOL TART IMMED RELEASE 25 MG TABLET. PO SCH ×2 (12:06→22:33)
--- NOTE | 2019-04-17 15:55 | PDOC ---
KEDAR MUÑOZ [facility] [employer] 04/17/19 1554: CARDIO Progress Notes Date and Time Date of Service 04/17/19 Time of Evaluation 1510 Subjective Subjective: Other (breathing better today) Vitals Vitals Vital Signs Date Time Temp Pulse Resp B/P (MAP) Pulse Ox O2 Delivery O2 Flow Rate FiO2 04/17/19 14:00 108 23 86/48 (61) 97 Nasal Cannula 2.0 04/17/19 12:00 97.2 97.2 Weight Weight [ ] Input and Output Intake and Output Intake and Output 04/17/19 07:00 Intake Total 1088 ml Output Total 2560 ml Balance -1472 ml Intake Oral 618 ml IV Total 470 ml Output Urine Total 1785 ml Stool Total 775 ml Laboratory Labs Laboratory Tests Test 04/16/19 18:03 04/16/19 20:50 04/16/19 21:20 04/17/19 07:53 Glucose (Fingerstick) 175 mg/dL (70-99) 122 mg/dL (70-99) Vancomycin Level Trough 10.9 mcg/mL (10.0-20.0) Vancomycin Last Dose Date 04/15/19 Vancomycin Last Dose Time 2300 White Blood Count 4.4 x10^3/uL (4.0-11.0) Red Blood Count 3.83 x10^6/uL (3.50-5.40) Hemoglobin 10.2 g/dL (12.0-15.5) Hematocrit 32.7 % (36.0-47.0) Mean Corpuscular Volume 85 fL (79-100) Mean Corpuscular Hemoglobin 27 pg (25-35) Mean Corpuscular Hemoglobin Concent 31 g/dL (31-37) Red Cell Distribution Width 16.1 % (11.5-14.5) Platelet Count 264 x10^3/uL (140-400) Test 04/17/19 07:55 04/17/19 08:55 04/17/19 12:08 Sodium Level 139 mmol/L (136-145) Potassium Level 3.8 mmol/L (3.5-5.1) Chloride Level 99 mmol/L (98-107) Carbon Dioxide Level 34 mmol/L (21-32) Anion Gap 6 (6-14) Blood Urea Nitrogen 16 mg/dL (7-20) Creatinine 1.1 mg/dL (0.6-1.0) Estimated GFR (Cockcroft-Gault) 48.4 Glucose Level 128 mg/dL (70-99) Calcium Level 8.4 mg/dL (8.5-10.1) Glucose (Fingerstick) 107 mg/dL (70-99) 151 mg/dL (70-99) Microbiology Micro Microbiology 04/16/19 Blood Culture - Preliminary, Resulted NO GROWTH AFTER 1 DAY Physical Exam HEENT: Neck Supple W Full Motion Chest: Symmetric LUNGS: Other (rhonci ) Heart: S1S2, irregularly irregular Abdomen: Soft N/T Extremities: No Edema Neurology: alert, follow commands Assessment Assessment 1. Acute respiratory failure with AECOPD, PNA 2. Acute on chronic diastolic CHF; echo with normal LV systolic function 3. V/Q high probability for PE: neg venous doppler for DVT 4. Diabetes, II 5. Hypertension; low end 6. Hyperlipidemia 7. CAD s/p PCI/stents 8. PAFIB; s/p previous ablation. Went into AFIB with RVR last night. Remains in AFIB with rate near 100 Recommendations Continue metoprolol for rate control Use IV dig PRN as BP is marginal Hold losartan as warranted Covert Bumex to oral Anticoagulation with Lovenox Will follow along LIMA SNYDER MD 04/17/19 9408: CARDIO Progress Notes Plan Plan Pt. seen and examined. Agree with above [employer] note. Supportive care. KEDAR MUÑOZ APRN Apr 17, 2019 15:54 LIMA SNYDER MD Apr 17, 2019 23:58
[2019-04-17] MEDS: VANCOMYCIN 1.25 GM in IV NORMAL SALINE 250ML 250 ML IV SCH (17:48)
[2019-04-17] MEDS: ATORVASTATIN CALCIUM 40 MG TABLET. PO SCH (22:20)
[2019-04-17] MEDS: DOCUSATE SODIUM 100 MG CAPSULE. PO SCH (22:20)
[2019-04-18 03:10] VITALS: BP 121/67
[2019-04-18] MEDS: PIPERACILLIN/TAZOBACTAM 3.375 GM in IV NORMAL SALINE 50ML 50 ML IV SCH ×5 (06:00→20:50)
[2019-04-18 07:59] VITALS: BP 110/80
[2019-04-18] MEDS: INSULIN LISPRO 300 UNITS/3 ML VIAL. SQ SCH ×3 (08:00→17:00)
[2019-04-18 08:41] LABS: CALCIUM 8.7 mg/dL (8.5-10.1); CREATININE 1.1 mg/dL (0.6-1.0); GFR 48.4; POTASSIUM 3.9 mmol/L (3.5-5.1)
[2019-04-18] MEDS: IPRATRPIUM/ALBUTEROL 0.5/2.5MG 3 ML NEBU. NEB SCH ×4 (08:44→21:13)
[2019-04-18] MEDS: CYCLOBENZAPRINE 10 MG TABLET. PO SCH ×2 (10:07→20:55)
[2019-04-18] MEDS: rOPINIRole 1 MG TABLET. PO SCH ×2 (10:08→21:01)
[2019-04-18] MEDS: GABAPENTIN 300 MG CAPSULE. PO SCH ×2 (10:10→21:00)
[2019-04-18] MEDS: OMEGA-3 FATTY ACIDS/FISH OIL 1,000 MG CAPSULE. PO SCH (10:10)
[2019-04-18] MEDS: LACTOBACILLUS RHAMNOSUS GG 1 CAPSULE. PO SCH ×2 (10:10→20:55)
[2019-04-18] MEDS: FLUoxetine HCL 20 MG CAPSULE PO SCH ×2 (10:11→20:59)
[2019-04-18] MEDS: MULTIVITAMIN with MINERAL TABLET. PO SCH (10:12)
[2019-04-18] MEDS: ASPIRIN CHEWABLE 81 MG TABLET. PO SCH (10:13)
[2019-04-18] MEDS: BUMETANIDE 1 MG TABLET. PO SCH ×2 (10:15→16:00)
[2019-04-18] MEDS: SIMETHICONE 80 MG TAB.CHEW PO SCH ×2 (10:15→21:00)
[2019-04-18] MEDS: OXYBUTYNIN CHLORIDE 5 MG TABLET PO SCH ×3 (10:15→20:59)
[2019-04-18] MEDS: diphenhydrAMINE HCL 25 MG CAPSULE PO SCH ×2 (10:16→21:01)
[2019-04-18] MEDS: METOPROLOL TART IMMED RELEASE 25 MG TABLET. PO SCH ×2 (10:17→21:00)
[2019-04-18] MEDS: traMADol 50 MG TABLET PO SCH ×2 (10:18→21:01)
[2019-04-18] MEDS: POTASSIUM CHLORIDE 10 MEQ TABLET.ER. PO SCH (10:19)
[2019-04-18] MEDS: LOSARTAN POTASSIUM 50 MG TABLET. PO SCH (10:20)
[2019-04-18] MEDS: PANTOPRAZOLE 40 MG TABLET.DR. PO SCH (10:21)
[2019-04-18] MEDS: INSULIN GLARGINE SYRINGE. SQ SCH ×2 (10:48→20:58)
[2019-04-18 12:10] VITALS: BP 105/60
--- NOTE | 2019-04-18 12:25 | PDOC ---
PULMONARY PROGRESS NOTES Subjective NOT MORE SOA DID NOT REQUIRE BIPAP Vitals Vital Signs Date Time Temp Pulse Resp B/P (MAP) Pulse Ox O2 Delivery O2 Flow Rate FiO2 04/18/19 12:10 97.7 93 20 105/60 (75) 98 Nasal Cannula 2.5 97.7 ROS: No Nausea, No Chest Pain, No Abdominal Pain, No Increase Cough General: Alert Lungs: Crackles Cardiovascular: S1, S2 Abdomen: Soft Neuro Exam: Alert Extremities: No Edema Skin: Warm Labs Laboratory Tests Test 04/16/19 12:45 04/16/19 18:03 04/16/19 20:50 04/16/19 21:20 Lactic Acid Level 0.8 mmol/L (0.4-2.0) Glucose (Fingerstick) 175 mg/dL (70-99) 122 mg/dL (70-99) Vancomycin Level Trough 10.9 mcg/mL (10.0-20.0) Vancomycin Last Dose Date 04/15/19 Vancomycin Last Dose Time 2300 Test 04/17/19 07:53 04/17/19 07:55 04/17/19 08:55 04/17/19 12:08 White Blood Count 4.4 x10^3/uL (4.0-11.0) Red Blood Count 3.83 x10^6/uL (3.50-5.40) Hemoglobin 10.2 g/dL (12.0-15.5) Hematocrit 32.7 % (36.0-47.0) Mean Corpuscular Volume 85 fL (79-100) Mean Corpuscular Hemoglobin 27 pg (25-35) Mean Corpuscular Hemoglobin Concent 31 g/dL (31-37) Red Cell Distribution Width 16.1 % (11.5-14.5) Platelet Count 264 x10^3/uL (140-400) Sodium Level 139 mmol/L (136-145) Potassium Level 3.8 mmol/L (3.5-5.1) Chloride Level 99 mmol/L (98-107) Carbon Dioxide Level 34 mmol/L (21-32) Anion Gap 6 (6-14) Blood Urea Nitrogen 16 mg/dL (7-20) Creatinine 1.1 mg/dL (0.6-1.0) Estimated GFR (Cockcroft-Gault) 48.4 Glucose Level 128 mg/dL (70-99) Calcium Level 8.4 mg/dL (8.5-10.1) Glucose (Fingerstick) 107 mg/dL (70-99) 151 mg/dL (70-99) Test 04/17/19 17:31 04/17/19 21:13 04/18/19 07:27 04/18/19 07:40 Glucose (Fingerstick) 190 mg/dL (70-99) 142 mg/dL (70-99) 120 mg/dL (70-99) Sodium Level 136 mmol/L (136-145) Potassium Level 3.9 mmol/L (3.5-5.1) Chloride Level 99 mmol/L (98-107) Carbon Dioxide Level 34 mmol/L (21-32) Anion Gap 3 (6-14) Blood Urea Nitrogen 16 mg/dL (7-20) Creatinine 1.1 mg/dL (0.6-1.0) Estimated GFR (Cockcroft-Gault) 48.4 Glucose Level 130 mg/dL (70-99) Calcium Level 8.7 mg/dL (8.5-10.1) Thyroid Stimulating Hormone (TSH) 3.141 uIU/mL (0.358-3.74) Test 04/18/19 11:00 Glucose (Fingerstick) 184 mg/dL (70-99) Laboratory Tests Test 04/17/19 17:31 04/17/19 21:13 04/18/19 07:27 04/18/19 07:40 Glucose (Fingerstick) 190 mg/dL (70-99) 142 mg/dL (70-99) 120 mg/dL (70-99) Sodium Level 136 mmol/L (136-145) Potassium Level 3.9 mmol/L (3.5-5.1) Chloride Level 99 mmol/L (98-107) Carbon Dioxide Level 34 mmol/L (21-32) Anion Gap 3 (6-14) Blood Urea Nitrogen 16 mg/dL (7-20) Creatinine 1.1 mg/dL (0.6-1.0) Estimated GFR (Cockcroft-Gault) 48.4 Glucose Level 130 mg/dL (70-99) Calcium Level 8.7 mg/dL (8.5-10.1) Thyroid Stimulating Hormone (TSH) 3.141 uIU/mL (0.358-3.74) Test 04/18/19 11:00 Glucose (Fingerstick) 184 mg/dL (70-99) Medications Active Scripts Medications Dose Route/Sig Max Daily Dose Days Date Category Tramadol Hcl 50 Mg Tablet 50 Mg PO BID 04/15/19 Reported Ropinirole Hcl 1 Mg Tablet 1 Mg PO BID 04/15/19 Reported Diphenhydramine Hcl 25 Mg Tablet 25 Mg PO BID 04/15/19 Reported Ambien (Zolpidem Tartrate) 5 Mg Tablet 5 Mg PO PRN QHS PRN 04/15/19 Reported Vancomycin Hcl 125 Mg Capsule 1.25 Gm IV DAILY 04/15/19 Reported Simethicone 80 Mg Tab.chew 120 Mg PO BID 04/15/19 Reported Klor-Con 10 (Potassium Chloride) 10 Meq Tablet.er 10 Meq PO DAILY 04/15/19 Reported Piperacil-Tazobact 3.375 Gm Vl (Piperacillin Sodium/Tazobactam) 3.375 Gm Vial 3.375 Gm IV Q6HRS 04/15/19 Reported Protonix (Pantoprazole Sodium) 40 Mg Tablet.dr 40 Mg PO DAILYAC 04/15/19 Reported Oxybutynin Chloride 5 Mg Tablet 5 Mg PO TID 04/15/19 Reported Ondansetron Odt (Ondansetron) 8 Mg Tab.rapdis 8 Mg PO PRN Q12HR PRN 04/15/19 Reported [place]-3 Fish Oil 1,000 mg Sfgl ([place]-3 Fatty Acids/Fish Oil) 1 Each Capsule 1 Cap PO DAILY 04/15/19 Reported Multivitamins With Minerals (Multivitamin With Minerals) 1 Each Tablet 1 Tab PO DAILY 04/15/19 Reported Midodrine Hcl 5 Mg Tablet 5 Mg PO BIDWMEALS 04/15/19 Reported Meclizine Hcl 25 Mg Tablet 25 Mg PO PRN Q8HRS PRN 04/15/19 Reported Losartan Potassium 50 Mg Tablet 50 Mg PO DAILY 04/15/19 Reported Acidophilus (Lactobacillus Acidophilus) 1 Each Capsule 1 Cap PO BID 04/15/19 Reported Duoneb 0.5-3(2.5) Mg/3 Ml (Albuterol/Ipratropium) 3 Ml Ampul.neb 3 Ml NEB QID 04/15/19 Reported Humalog (Insulin Lispro) 100 Unit/1 Ml Vial 0-9 Unit SQ TIDWMEALS 04/15/19 Reported Lantus (Insulin Glargine,Hum.rec.anlog) 100 Unit/1 Ml Vial 30 Unit SQ BID 04/15/19 Reported Gabapentin 600 Mg Tablet 600 Mg PO BID 04/15/19 Reported Fluoxetine Hcl 20 Mg Tablet 20 Mg PO BID 04/15/19 Reported Lovenox (Enoxaparin Sodium) 100 Mg/1 Ml Disp.syrin 90 Mg SQ BID 04/15/19 Reported Docusate Sodium 100 Mg Capsule 100 Mg PO QHS 04/15/19 Reported Cyclobenzaprine Hcl 5 Mg Tablet 5 Mg PO BID 04/15/19 Reported Vitamin D3 (Cholecalciferol (Vitamin D3)) 50,000 Unit Capsule 50,000 Unit PO WEEKLY 04/15/19 Reported Bumetanide 1 Mg Tablet 1 Mg IV BID 04/15/19 Reported Atorvastatin Calcium 40 Mg Tablet 40 Mg PO HS 04/15/19 Reported Acetaminophen 500 Mg Tablet 1,000 Mg PO PRN Q6HRS PRN 04/15/19 Reported Children's Aspirin (Aspirin) 81 Mg Tab.chew 81 Mg PO DAILY 04/15/19 Reported Impression . IMPRESSION: 1. Acute respiratory failure, multifactorial. 2. Pulmonary embolism. 3. Acute exacerbation of chronic obstructive pulmonary disease. 4. Possible pneumonia, gram negative/gram positive. 5. Abnormal chest x-ray. 6. Type 2 diabetes. 7. Obesity. 8. Coronary artery disease. 9. Chronic diastolic heart failure. Plan . 02 UP TO CHAIR PT EVAL ANTI BX D/W ANTICOAGULATION SADE FREEMAN MD Apr 18, 2019 12:25
[2019-04-18] MEDS: VANCOMYCIN PER PHARMACY MC PRN (12:41)
[2019-04-18] MEDS: ANTI-COAG MONITOR BY PHARMACY. MC PRN (12:42)
[2019-04-18] MEDS: VANCOMYCIN 1.25 GM in IV NORMAL SALINE 250ML 250 ML IV SCH (12:47)
[2019-04-18 16:00] VITALS: BP 109/59
[2019-04-18] MEDS: DOCUSATE SODIUM 100 MG CAPSULE. PO SCH (20:55)
[2019-04-18] MEDS: APIXABAN 5 MG TABLET. PO SCH (20:59)
[2019-04-18] MEDS: ATORVASTATIN CALCIUM 40 MG TABLET. PO SCH (21:05)
--- NOTE | 2019-04-18 23:09 | PN ---
DATE: 04/18/2019 SUBJECTIVE: The patient is resting slightly propped up in bed, in no apparent respiratory distress. She is awake, alert, feeling generally much better. Denied any chest pain. Did complain obviously of shortness of breath. Has no cough or phlegm. No hemoptysis. She continued to be in atrial fibrillation, rate controlled. PHYSICAL EXAMINATION: GENERAL: When I examined her, she looked pale, but no jaundice, cyanosis or thyromegaly. No jugular venous distention. No lower limb edema. VITAL SIGNS: Her heart rate was 104, blood pressure was 110/80, temperature 97.8, respiratory rate was 20, and oxygen saturation was 94% on 2.5 liters of oxygen. HEAD, EYES, EARS, NOSE AND THROAT: Showed normocephalic, atraumatic. NECK: Supple. HEART: Showed normal first and second heart sounds. No gallop or murmur. CHEST: Clear to auscultation. No crepitation or rhonchi. ABDOMEN: Distended, soft, nontender. NEUROLOGIC: She was awake, alert, responding appropriately. All cranial nerves are intact. She moves extremities without difficulty. She continued to be extremely weak and debilitated. ASSESSMENT: 1. Acute respiratory failure, multifactorial. 2. Chronic obstructive pulmonary disease exacerbation. 3. Bilateral lung infiltrate consistent with probable community-acquired pneumonia versus acute on chronic diastolic congestive heart failure. 4. High probability V/Q scan for pulmonary embolism. CT angio of the chest could not be done because SHE IS ALLERGIC TO IODINE AND IODINE CONTAINING PRODUCTS. 5. New onset atrial fibrillation with rapid ventricular response. 6. Hyperlipidemia. PLAN: To continue with antibiotic. Continue with Lovenox. I will probably switch her to Eliquis 10 mg twice a day and discontinue her Briggs catheter and continue with physical and occupational therapy. She would probably need to be admitted to a jail facility, probably [facility] before she can go home. SAMY OCONNOR MD DR: TRACEE/eduard JOB#: [id number] / [id number]
[2019-04-18 23:17] VITALS: BP 106/50
[2019-04-19] MEDS: PIPERACILLIN/TAZOBACTAM 3.375 GM in IV NORMAL SALINE 50ML 50 ML IV SCH ×4 (01:03→19:04)
[2019-04-19 03:00] VITALS: BP_SYST 101; BP_SYST 148; BP_DIAS 53; BP_DIAS 82
[2019-04-19 05:21] LABS: CALCIUM 8.4 mg/dL (8.5-10.1); CREATININE 1.2 mg/dL (0.6-1.0); GFR 43.8; POTASSIUM 3.9 mmol/L (3.5-5.1)
[2019-04-19 05:24] LABS: VANC TR 20.9 mcg/mL (10.0-20.0)
[2019-04-19] MEDS: INSULIN LISPRO 300 UNITS/3 ML VIAL. SQ SCH ×3 (08:00→17:00)
[2019-04-19 08:01] VITALS: BP 146/70
[2019-04-19] MEDS: VANCOMYCIN 1 GM in IV NORMAL SALINE 250ML 250 ML IV SCH (08:13)
[2019-04-19] MEDS: GABAPENTIN 300 MG CAPSULE. PO SCH ×2 (08:48→21:01)
[2019-04-19] MEDS: diphenhydrAMINE HCL 25 MG CAPSULE PO SCH ×2 (08:48→21:01)
[2019-04-19] MEDS: traMADol 50 MG TABLET PO SCH ×2 (08:50→21:00)
[2019-04-19] MEDS: SIMETHICONE 80 MG TAB.CHEW PO SCH ×2 (08:52→20:58)
[2019-04-19] MEDS: APIXABAN 5 MG TABLET. PO SCH ×2 (08:52→20:58)
[2019-04-19] MEDS: ASPIRIN CHEWABLE 81 MG TABLET. PO SCH (08:52)
[2019-04-19] MEDS: CYCLOBENZAPRINE 10 MG TABLET. PO SCH ×2 (08:53→20:59)
[2019-04-19] MEDS: LACTOBACILLUS RHAMNOSUS GG 1 CAPSULE. PO SCH ×2 (08:54→21:02)
[2019-04-19] MEDS: OMEGA-3 FATTY ACIDS/FISH OIL 1,000 MG CAPSULE. PO SCH (08:55)
[2019-04-19] MEDS: MULTIVITAMIN with MINERAL TABLET. PO SCH (08:55)
[2019-04-19] MEDS: POTASSIUM CHLORIDE 10 MEQ TABLET.ER. PO SCH (08:55)
[2019-04-19] MEDS: PANTOPRAZOLE 40 MG TABLET.DR. PO SCH (08:56)
[2019-04-19] MEDS: rOPINIRole 1 MG TABLET. PO SCH ×2 (08:57→21:02)
[2019-04-19] MEDS: FLUoxetine HCL 20 MG CAPSULE PO SCH ×2 (08:57→21:00)
[2019-04-19] MEDS: LOSARTAN POTASSIUM 50 MG TABLET. PO SCH (08:57)
[2019-04-19] MEDS: OXYBUTYNIN CHLORIDE 5 MG TABLET PO SCH ×3 (08:58→20:59)
[2019-04-19] MEDS: METOPROLOL TART IMMED RELEASE 25 MG TABLET. PO SCH ×2 (08:58→21:02)
[2019-04-19] MEDS: INSULIN GLARGINE SYRINGE. SQ SCH ×2 (09:00→21:08)
[2019-04-19] MEDS: IPRATRPIUM/ALBUTEROL 0.5/2.5MG 3 ML NEBU. NEB SCH ×4 (09:03→20:01)
[2019-04-19] MEDS: BUMETANIDE 1 MG TABLET. PO SCH ×2 (10:46→15:05)
--- NOTE | 2019-04-19 11:19 | PDOC ---
PULMONARY PROGRESS NOTES Subjective BETTER LESS SOA Vitals Vital Signs Date Time Temp Pulse Resp B/P (MAP) Pulse Ox O2 Delivery O2 Flow Rate FiO2 04/19/19 09:50 95 Nasal Cannula 1.0 04/19/19 08:58 79 146/70 04/19/19 08:01 97.9 20 97.9 ROS: No Nausea, No Chest Pain, No Abdominal Pain, No Increase Cough General: Alert Lungs: Crackles Cardiovascular: S1, S2 Abdomen: Soft Neuro Exam: Alert Extremities: No Edema Skin: Warm Labs Laboratory Tests Test 04/17/19 12:08 04/17/19 17:31 04/17/19 21:13 04/18/19 07:27 Glucose (Fingerstick) 151 mg/dL (70-99) 190 mg/dL (70-99) 142 mg/dL (70-99) 120 mg/dL (70-99) Test 04/18/19 07:40 04/18/19 11:00 04/18/19 16:48 04/18/19 20:54 Sodium Level 136 mmol/L (136-145) Potassium Level 3.9 mmol/L (3.5-5.1) Chloride Level 99 mmol/L (98-107) Carbon Dioxide Level 34 mmol/L (21-32) Anion Gap 3 (6-14) Blood Urea Nitrogen 16 mg/dL (7-20) Creatinine 1.1 mg/dL (0.6-1.0) Estimated GFR (Cockcroft-Gault) 48.4 Glucose Level 130 mg/dL (70-99) Calcium Level 8.7 mg/dL (8.5-10.1) Thyroid Stimulating Hormone (TSH) 3.141 uIU/mL (0.358-3.74) Glucose (Fingerstick) 184 mg/dL (70-99) 150 mg/dL (70-99) 174 mg/dL (70-99) Test 04/19/19 04:20 04/19/19 07:20 Sodium Level 141 mmol/L (136-145) Potassium Level 3.9 mmol/L (3.5-5.1) Chloride Level 101 mmol/L (98-107) Carbon Dioxide Level 34 mmol/L (21-32) Anion Gap 6 (6-14) Blood Urea Nitrogen 17 mg/dL (7-20) Creatinine 1.2 mg/dL (0.6-1.0) Estimated GFR (Cockcroft-Gault) 43.8 Glucose Level 96 mg/dL (70-99) Calcium Level 8.4 mg/dL (8.5-10.1) Vancomycin Level Trough 20.9 mcg/mL (10.0-20.0) Vancomycin Last Dose Date 04/18/19 Vancomycin Last Dose Time 1100 Glucose (Fingerstick) 72 mg/dL (70-99) Laboratory Tests Test 04/18/19 16:48 04/18/19 20:54 04/19/19 04:20 04/19/19 07:20 Glucose (Fingerstick) 150 mg/dL (70-99) 174 mg/dL (70-99) 72 mg/dL (70-99) Sodium Level 141 mmol/L (136-145) Potassium Level 3.9 mmol/L (3.5-5.1) Chloride Level 101 mmol/L (98-107) Carbon Dioxide Level 34 mmol/L (21-32) Anion Gap 6 (6-14) Blood Urea Nitrogen 17 mg/dL (7-20) Creatinine 1.2 mg/dL (0.6-1.0) Estimated GFR (Cockcroft-Gault) 43.8 Glucose Level 96 mg/dL (70-99) Calcium Level 8.4 mg/dL (8.5-10.1) Vancomycin Level Trough 20.9 mcg/mL (10.0-20.0) Vancomycin Last Dose Date 04/18/19 Vancomycin Last Dose Time 1100 Medications Active Scripts Medications Dose Route/Sig Max Daily Dose Days Date Category Tramadol Hcl 50 Mg Tablet 50 Mg PO BID 04/15/19 Reported Ropinirole Hcl 1 Mg Tablet 1 Mg PO BID 04/15/19 Reported Diphenhydramine Hcl 25 Mg Tablet 25 Mg PO BID 04/15/19 Reported Ambien (Zolpidem Tartrate) 5 Mg Tablet 5 Mg PO PRN QHS PRN 04/15/19 Reported Vancomycin Hcl 125 Mg Capsule 1.25 Gm IV DAILY 04/15/19 Reported Simethicone 80 Mg Tab.chew 120 Mg PO BID 04/15/19 Reported Klor-Con 10 (Potassium Chloride) 10 Meq Tablet.er 10 Meq PO DAILY 04/15/19 Reported Piperacil-Tazobact 3.375 Gm Vl (Piperacillin Sodium/Tazobactam) 3.375 Gm Vial 3.375 Gm IV Q6HRS 04/15/19 Reported Protonix (Pantoprazole Sodium) 40 Mg Tablet.dr 40 Mg PO DAILYAC 04/15/19 Reported Oxybutynin Chloride 5 Mg Tablet 5 Mg PO TID 04/15/19 Reported Ondansetron Odt (Ondansetron) 8 Mg Tab.rapdis 8 Mg PO PRN Q12HR PRN 04/15/19 Reported [place]-3 Fish Oil 1,000 mg Sfgl ([place]-3 Fatty Acids/Fish Oil) 1 Each Capsule 1 Cap PO DAILY 04/15/19 Reported Multivitamins With Minerals (Multivitamin With Minerals) 1 Each Tablet 1 Tab PO DAILY 04/15/19 Reported Midodrine Hcl 5 Mg Tablet 5 Mg PO BIDWMEALS 04/15/19 Reported Meclizine Hcl 25 Mg Tablet 25 Mg PO PRN Q8HRS PRN 04/15/19 Reported Losartan Potassium 50 Mg Tablet 50 Mg PO DAILY 04/15/19 Reported Acidophilus (Lactobacillus Acidophilus) 1 Each Capsule 1 Cap PO BID 04/15/19 Reported Duoneb 0.5-3(2.5) Mg/3 Ml (Albuterol/Ipratropium) 3 Ml Ampul.neb 3 Ml NEB QID 04/15/19 Reported Humalog (Insulin Lispro) 100 Unit/1 Ml Vial 0-9 Unit SQ TIDWMEALS 04/15/19 Reported Lantus (Insulin Glargine,Hum.rec.anlog) 100 Unit/1 Ml Vial 30 Unit SQ BID 04/15/19 Reported Gabapentin 600 Mg Tablet 600 Mg PO BID 04/15/19 Reported Fluoxetine Hcl 20 Mg Tablet 20 Mg PO BID 04/15/19 Reported Lovenox (Enoxaparin Sodium) 100 Mg/1 Ml Disp.syrin 90 Mg SQ BID 04/15/19 Reported Docusate Sodium 100 Mg Capsule 100 Mg PO QHS 04/15/19 Reported Cyclobenzaprine Hcl 5 Mg Tablet 5 Mg PO BID 04/15/19 Reported Vitamin D3 (Cholecalciferol (Vitamin D3)) 50,000 Unit Capsule 50,000 Unit PO WEEKLY 04/15/19 Reported Bumetanide 1 Mg Tablet 1 Mg IV BID 04/15/19 Reported Atorvastatin Calcium 40 Mg Tablet 40 Mg PO HS 04/15/19 Reported Acetaminophen 500 Mg Tablet 1,000 Mg PO PRN Q6HRS PRN 04/15/19 Reported Children's Aspirin (Aspirin) 81 Mg Tab.chew 81 Mg PO DAILY 04/15/19 Reported Impression . IMPRESSION: 1. Acute respiratory failure, multifactorial. 2. Pulmonary embolism. 3. Acute exacerbation of chronic obstructive pulmonary disease. 4. Possible pneumonia, gram negative/gram positive. 5. Abnormal chest x-ray. 6. Type 2 diabetes. 7. Obesity. 8. Coronary artery disease. 9. Chronic diastolic heart failure. Plan . D/C DR OCONNOR POSSIBLE TRANSFER IN AM TO SNU UP TO CHAIR PT EVAL ANTI BX D/W ANTICOAGULATION SADE FREEMAN MD Apr 19, 2019 11:19
[2019-04-19] MEDS: ANTI-COAG MONITOR BY PHARMACY. MC PRN (11:50)
[2019-04-19 11:57] VITALS: BP 125/60
[2019-04-19 16:25] VITALS: BP 120/51
[2019-04-19] MEDS: ATORVASTATIN CALCIUM 40 MG TABLET. PO SCH (21:01)
[2019-04-19] MEDS: DOCUSATE SODIUM 100 MG CAPSULE. PO SCH (21:01)
[2019-04-19 23:42] VITALS: BP 158/82
[2019-04-20] MEDS: PIPERACILLIN/TAZOBACTAM 3.375 GM in IV NORMAL SALINE 50ML 50 ML IV SCH ×2 (00:47→06:34)
--- NOTE | 2019-04-20 01:47 | PN ---
DATE: 04/19/2019 SUBJECTIVE: The patient is sitting slightly propped up in bed, in no apparent distress. On questioning her, she continued to complain of sore throat, otherwise doing much better. She has been up and about, walked all the way to the bathroom and back and has generally uneventful night. PHYSICAL EXAMINATION: GENERAL: When I examined her, she looked pale, but not jaundiced or cyanosed. No lymphadenopathy, no thyromegaly. No jugular venous distension. No lower limb edema. VITAL SIGNS: Her heart rate was 79, blood pressure was 146/70, temperature 97.9, respiratory rate 20, and oxygen saturation was 94% on 1 liter of oxygen. HEAD, EYES, EARS, NOSE AND THROAT: Showed normocephalic, atraumatic. NECK: Supple. CARDIAC: Normal first and second heart sounds. No gallop, rub or murmur. CHEST: Shows central trachea, equally reduced expansion, reduced air entry, vesicular breath sounds with bilateral scattered rhonchi and few bilateral basal crepitation. ABDOMEN: Slightly distended, soft, nontender. NEUROLOGIC: She was definitely more awake, alert, responding appropriately. All cranial nerves intact. She moves extremities without difficulty. She ambulates without assistance or assistive devices. Her intake over the last 24 hours was 1380, output was 2965. LABORATORY DATA: As of this morning, her white cell count was 4400, hemoglobin 10, hematocrit 33, MCV 85 and platelet count 264,000. Her chemistry this morning showed a serum sodium 141, potassium 3.9, chloride 101, bicarbonate 34, anion gap of 6, BUN 17, creatinine 1.2, estimated GFR was 44 mL per minute. Her glucose was 96, calcium was 8.4. ASSESSMENT: 1. Acute respiratory failure, multifactorial. 2. Chronic obstructive pulmonary disease exacerbation. 3. Bilateral lung infiltrate consistent probably with community-acquired pneumonia versus acute on chronic diastolic congestive heart failure. 4. High probability V/Q scan for pulmonary embolism. CT scan of the chest could not be done because she is allergic to IODINE AND IODINE CONTAINING PRODUCT. 5. New onset atrial fibrillation with rapid ventricular response. Her heart rate is much better controlled. 6. Hyperlipidemia. PLAN: To continue with IV antibiotic. Continue with apixaban for DVT prophylaxis. Continue with metoprolol to control the heart rate and bumetanide for congestive heart failure. SAMY OCONNOR MD DR: TRACEE/eduard JOB#: [id number] / [id number]
[2019-04-20 03:00] VITALS: BP 130/60
[2019-04-20] MEDS: VANCOMYCIN 1 GM in IV NORMAL SALINE 250ML 250 ML IV SCH (04:02)
[2019-04-20] MEDS: IPRATRPIUM/ALBUTEROL 0.5/2.5MG 3 ML NEBU. NEB SCH ×3 (07:39→15:31)
[2019-04-20] MEDS: INSULIN LISPRO 300 UNITS/3 ML VIAL. SQ SCH ×2 (08:00→12:00)
[2019-04-20 08:14] VITALS: BP 131/61
[2019-04-20] MEDS: METOPROLOL TART IMMED RELEASE 25 MG TABLET. PO SCH (09:23)
[2019-04-20] MEDS: rOPINIRole 1 MG TABLET. PO SCH (09:23)
[2019-04-20] MEDS: BUMETANIDE 1 MG TABLET. PO SCH ×2 (09:23→14:21)
[2019-04-20] MEDS: LOSARTAN POTASSIUM 50 MG TABLET. PO SCH (09:23)
[2019-04-20] MEDS: MULTIVITAMIN with MINERAL TABLET. PO SCH (09:24)
[2019-04-20] MEDS: GABAPENTIN 300 MG CAPSULE. PO SCH (09:24)
[2019-04-20] MEDS: LACTOBACILLUS RHAMNOSUS GG 1 CAPSULE. PO SCH (09:24)
[2019-04-20] MEDS: traMADol 50 MG TABLET PO SCH (09:24)
[2019-04-20] MEDS: FLUoxetine HCL 20 MG CAPSULE PO SCH (09:24)
[2019-04-20] MEDS: diphenhydrAMINE HCL 25 MG CAPSULE PO SCH (09:24)
[2019-04-20] MEDS: ASPIRIN CHEWABLE 81 MG TABLET. PO SCH (09:24)
[2019-04-20] MEDS: OMEGA-3 FATTY ACIDS/FISH OIL 1,000 MG CAPSULE. PO SCH (09:24)
[2019-04-20] MEDS: POTASSIUM CHLORIDE 10 MEQ TABLET.ER. PO SCH (09:24)
[2019-04-20] MEDS: APIXABAN 5 MG TABLET. PO SCH (09:25)
[2019-04-20] MEDS: PANTOPRAZOLE 40 MG TABLET.DR. PO SCH (09:25)
[2019-04-20] MEDS: SIMETHICONE 80 MG TAB.CHEW PO SCH (09:25)
[2019-04-20] MEDS: CYCLOBENZAPRINE 10 MG TABLET. PO SCH (09:25)
[2019-04-20] MEDS: OXYBUTYNIN CHLORIDE 5 MG TABLET PO SCH ×2 (09:25→14:21)
[2019-04-20] MEDS: INSULIN GLARGINE SYRINGE. SQ SCH (09:36)
--- NOTE | 2019-04-20 10:18 | PDOC ---
PULMONARY PROGRESS NOTES Subjective BETTER LESS SOA Vitals Vital Signs Date Time Temp Pulse Resp B/P (MAP) Pulse Ox O2 Delivery O2 Flow Rate FiO2 04/20/19 09:23 64 131/61 04/20/19 08:14 97.4 16 95 Nasal Cannula 1.0 97.4 ROS: No Nausea, No Chest Pain, No Abdominal Pain, No Increase Cough General: Alert Lungs: Crackles Cardiovascular: S1, S2 Abdomen: Soft Neuro Exam: Alert Extremities: No Edema Skin: Warm Labs Laboratory Tests Test 04/18/19 11:00 04/18/19 16:48 04/18/19 20:54 04/19/19 04:20 Glucose (Fingerstick) 184 mg/dL (70-99) 150 mg/dL (70-99) 174 mg/dL (70-99) Sodium Level 141 mmol/L (136-145) Potassium Level 3.9 mmol/L (3.5-5.1) Chloride Level 101 mmol/L (98-107) Carbon Dioxide Level 34 mmol/L (21-32) Anion Gap 6 (6-14) Blood Urea Nitrogen 17 mg/dL (7-20) Creatinine 1.2 mg/dL (0.6-1.0) Estimated GFR (Cockcroft-Gault) 43.8 Glucose Level 96 mg/dL (70-99) Calcium Level 8.4 mg/dL (8.5-10.1) Vancomycin Level Trough 20.9 mcg/mL (10.0-20.0) Vancomycin Last Dose Date 04/18/19 Vancomycin Last Dose Time 1100 Test 04/19/19 07:20 04/19/19 11:29 04/19/19 16:50 04/19/19 20:57 Glucose (Fingerstick) 72 mg/dL (70-99) 169 mg/dL (70-99) 143 mg/dL (70-99) 131 mg/dL (70-99) Test 04/20/19 07:52 04/20/19 08:49 Glucose (Fingerstick) 65 mg/dL (70-99) 95 mg/dL (70-99) Laboratory Tests Test 04/19/19 11:29 04/19/19 16:50 04/19/19 20:57 04/20/19 07:52 Glucose (Fingerstick) 169 mg/dL (70-99) 143 mg/dL (70-99) 131 mg/dL (70-99) 65 mg/dL (70-99) Test 04/20/19 08:49 Glucose (Fingerstick) 95 mg/dL (70-99) Medications Active Scripts Medications Dose Route/Sig Max Daily Dose Days Date Category Tramadol Hcl 50 Mg Tablet 50 Mg PO BID 04/15/19 Reported Ropinirole Hcl 1 Mg Tablet 1 Mg PO BID 04/15/19 Reported Diphenhydramine Hcl 25 Mg Tablet 25 Mg PO BID 04/15/19 Reported Ambien (Zolpidem Tartrate) 5 Mg Tablet 5 Mg PO PRN QHS PRN 04/15/19 Reported Vancomycin Hcl 125 Mg Capsule 1.25 Gm IV DAILY 04/15/19 Reported Simethicone 80 Mg Tab.chew 120 Mg PO BID 04/15/19 Reported Klor-Con 10 (Potassium Chloride) 10 Meq Tablet.er 10 Meq PO DAILY 04/15/19 Reported Piperacil-Tazobact 3.375 Gm Vl (Piperacillin Sodium/Tazobactam) 3.375 Gm Vial 3.375 Gm IV Q6HRS 04/15/19 Reported Protonix (Pantoprazole Sodium) 40 Mg Tablet.dr 40 Mg PO DAILYAC 04/15/19 Reported Oxybutynin Chloride 5 Mg Tablet 5 Mg PO TID 04/15/19 Reported Ondansetron Odt (Ondansetron) 8 Mg Tab.rapdis 8 Mg PO PRN Q12HR PRN 04/15/19 Reported [place]-3 Fish Oil 1,000 mg Sfgl ([place]-3 Fatty Acids/Fish Oil) 1 Each Capsule 1 Cap PO DAILY 04/15/19 Reported Multivitamins With Minerals (Multivitamin With Minerals) 1 Each Tablet 1 Tab PO DAILY 04/15/19 Reported Midodrine Hcl 5 Mg Tablet 5 Mg PO BIDWMEALS 04/15/19 Reported Meclizine Hcl 25 Mg Tablet 25 Mg PO PRN Q8HRS PRN 04/15/19 Reported Losartan Potassium 50 Mg Tablet 50 Mg PO DAILY 04/15/19 Reported Acidophilus (Lactobacillus Acidophilus) 1 Each Capsule 1 Cap PO BID 04/15/19 Reported Duoneb 0.5-3(2.5) Mg/3 Ml (Albuterol/Ipratropium) 3 Ml Ampul.neb 3 Ml NEB QID 04/15/19 Reported Humalog (Insulin Lispro) 100 Unit/1 Ml Vial 0-9 Unit SQ TIDWMEALS 04/15/19 Reported Lantus (Insulin Glargine,Hum.rec.anlog) 100 Unit/1 Ml Vial 30 Unit SQ BID 04/15/19 Reported Gabapentin 600 Mg Tablet 600 Mg PO BID 04/15/19 Reported Fluoxetine Hcl 20 Mg Tablet 20 Mg PO BID 04/15/19 Reported Lovenox (Enoxaparin Sodium) 100 Mg/1 Ml Disp.syrin 90 Mg SQ BID 04/15/19 Reported Docusate Sodium 100 Mg Capsule 100 Mg PO QHS 04/15/19 Reported Cyclobenzaprine Hcl 5 Mg Tablet 5 Mg PO BID 04/15/19 Reported Vitamin D3 (Cholecalciferol (Vitamin D3)) 50,000 Unit Capsule 50,000 Unit PO WEEKLY 04/15/19 Reported Bumetanide 1 Mg Tablet 1 Mg IV BID 04/15/19 Reported Atorvastatin Calcium 40 Mg Tablet 40 Mg PO HS 04/15/19 Reported Acetaminophen 500 Mg Tablet 1,000 Mg PO PRN Q6HRS PRN 04/15/19 Reported Children's Aspirin (Aspirin) 81 Mg Tab.chew 81 Mg PO DAILY 04/15/19 Reported Impression . IMPRESSION: 1. Acute respiratory failure, multifactorial. 2. Pulmonary embolism. 3. Acute exacerbation of chronic obstructive pulmonary disease. 4. Possible pneumonia, gram negative/gram positive. 5. Abnormal chest x-ray. 6. Type 2 diabetes. 7. Obesity. 8. Coronary artery disease. 9. Chronic diastolic heart failure. Plan . 02 WILL D/C DR OCONNOR POSSIBLE TRANSFER IN AM TO [facility] UP TO CHAIR PT EVAL ANTI BX D/W ANTICOAGULATION SADE FREEMAN MD Apr 20, 2019 10:18
[2019-04-20] MEDS: VANCOMYCIN PER PHARMACY MC PRN (10:35)
[2019-04-20] MEDS ORDERED: METO25TA4 PO (10:41)
[2019-04-20] MEDS ORDERED: AMOX1TAB58 PO (10:41)
--- NOTE | 2019-04-20 10:44 | SNU/HH DC ---
DISCHARGE ORDERS DISCHARGE INFORMATION: DISCHARGE DATE: Apr 20, 2019 FINAL DIAGNOSIS acuterespiratory failure COPDExacerbation Bilateral pulmonary emboli Community acquired pneumonia CONDITION ON DISCHARGE: Stable CODE STATUS: Code Status: Full LONG TERM: SNF STAY <30 DAYS: Yes POST DISCHARGE ORDERS: ACTIVITY ORDERS: Activity as tolerated DIET AFTER DISCHARGE: ADA TREATMENT/EQUIPMENT ORDERS: RESPIRATORY EQUIPMENT NEEDED: Oxygen Physical Therapy For: Evalulation/Treatment Occupational Therapy For: Evaluation/Treatment DISCHARGE MEDICATIONS: Home Meds Active Scripts Amoxicillin/Potassium Clav (AUGMENTIN 500-125 TABLET) 1 Each Tablet, 1 TAB PO BID for pneumonia for 5 Days, #10 TAB 0 Refills Prov:SAMY OCONNOR MD 04/20/19 Metoprolol Tartrate (METOPROLOL TARTRATE) 25 Mg Tablet, 1 TAB PO BID for afib for 30 Days, #60 TAB 1 Refill Prov:SAMY OCONNOR MD 04/20/19 Reported Medications Tramadol Hcl (TRAMADOL HCL) 50 Mg Tablet, 50 MG PO BID for pain, TAB 04/15/19 Ropinirole Hcl (ROPINIROLE HCL) 1 Mg Tablet, 1 MG PO BID for restless legs, TAB 04/15/19 Diphenhydramine Hcl (DIPHENHYDRAMINE HCL) 25 Mg Tablet, 25 MG PO BID for itching, TAB 04/15/19 Zolpidem Tartrate (AMBIEN) 5 Mg Tablet, 5 MG PO PRN QHS PRN for INSOMNIA, TAB 0 Refills 04/15/19 Simethicone (SIMETHICONE) 80 Mg Tab.chew, 120 MG PO BID for gas, TAB.CHEW 04/15/19 Potassium Chloride (Klor-Con 10) 10 Meq Tablet.er, 10 MEQ PO DAILY for supplement, TAB.SR 04/15/19 Pantoprazole Sodium (PROTONIX ) 40 Mg Tablet.dr, 40 MG PO DAILYAC for GERD, TAB 04/15/19 Oxybutynin Chloride (OXYBUTYNIN CHLORIDE) 5 Mg Tablet, 5 MG PO TID for retention, TAB 04/15/19 Ondansetron (ONDANSETRON ODT) 8 Mg Tab.rapdis, 8 MG PO PRN Q12HR PRN for NAUSEA/VOMITING, TAB 04/15/19 [place]-3 Fatty Acids/Fish Oil ([place]-3 Fish Oil 1,000 mg Sfgl) 1 Each Capsule, 1 CAP PO DAILY for supplement, CAP 1/1/20 Multivitamin With Minerals (MULTIVITAMINS WITH MINERALS) 1 Each Tablet, 1 TAB PO DAILY for supplement, TAB 04/15/19 Midodrine Hcl (MIDODRINE HCL) 5 Mg Tablet, 5 MG PO BIDWMEALS for blood pressure, TAB 04/15/19 Meclizine Hcl (MECLIZINE HCL) 25 Mg Tablet, 25 MG PO PRN Q8HRS PRN for dizziness, TAB 04/15/19 Losartan Potassium (LOSARTAN POTASSIUM) 50 Mg Tablet, 50 MG PO DAILY for HYPERTENSION, TAB 04/15/19 Lactobacillus Acidophilus (ACIDOPHILUS) 1 Each Capsule, 1 CAP PO BID for probiotic, CAP 04/15/19 Ipratropium/Albuterol Sulfate (DUONEB 0.5-3(2.5) MG/3 ML) 3 Ml Ampul.neb, 3 ML NEB QID for breathing, EACH 04/15/19 Insulin Lispro (HUMALOG) 100 Unit/1 Ml Vial, 0-9 UNIT SQ TIDWMEALS for high blood sugar, VIAL 04/15/19 Insulin Glargine,Hum.rec.anlog (LANTUS) 100 Unit/1 Ml Vial, 30 UNIT SQ BID for high blood sugars, VIAL 04/15/19 Gabapentin (GABAPENTIN) 600 Mg Tablet, 600 MG PO BID for NEUROGENIC PAIN, TAB 04/15/19 Fluoxetine Hcl (FLUOXETINE HCL) 20 Mg Tablet, 20 MG PO BID for mood, TAB 04/15/19 Docusate Sodium (DOCUSATE SODIUM) 100 Mg Capsule, 100 MG PO QHS for constipation, CAP 04/15/19 Cyclobenzaprine Hcl (CYCLOBENZAPRINE HCL) 5 Mg Tablet, 5 MG PO BID for muscle relaxant, TAB 04/15/19 Cholecalciferol (Vitamin D3) (VITAMIN D3) 50,000 Unit Capsule, 39097 UNIT PO WEEKLY for supplement, CAP 04/15/19 Bumetanide (BUMETANIDE) 1 Mg Tablet, 1 MG IV BID for fluid retention, TAB 04/15/19 Atorvastatin Calcium (ATORVASTATIN CALCIUM) 40 Mg Tablet, 40 MG PO HS for FOR CHOLESTEROL, #30 TAB 0 Refills 04/15/19 Acetaminophen (ACETAMINOPHEN) 500 Mg Tablet, 1000 MG PO PRN Q6HRS PRN for MILD PAIN / TEMP, TAB 04/15/19 Aspirin (Children's Aspirin) 81 Mg Tab.chew, 81 MG PO DAILY for heart health, TAB.CHEW 04/15/19 Discontinued Reported Medications Vancomycin Hcl (VANCOMYCIN HCL) 125 Mg Capsule, 1.25 GM IV DAILY for infection, CAP 04/15/19 Piperacillin Sodium/Tazobactam (PIPERACIL-TAZOBACT 3.375 GM VL) 3.375 Gm Vial, 3.375 GM IV Q6HRS for infection, EACH 04/15/19 Enoxaparin Sodium (LOVENOX) 100 Mg/1 Ml Disp.syrin, 90 MG SQ BID for ANTI- COAGULANT, DIS.SYR 04/15/19 SAMY OCONNOR MD Apr 20, 2019 10:44
--- NOTE | 2019-04-20 10:58 | NUR ---
SS following up with discharge planning. PT recommended halfway unit. Pt and pt's family requesting [facility], ; fax [phone]. Discharge orders received for halfway unit. SS phoned and faxed discharge orders and referral to [facility]. SS currently awaiting acceptance decision and will proceed accordingly with discharge planning.
[2019-04-20] MEDS ORDERED: APIXABAN 5 MG TABLET. PO SCH (11:00)
[2019-04-20 11:04] VITALS: BP 95/41
--- NOTE | 2019-04-20 11:04 | DS ---
DATE OF DISCHARGE: 04/20/2019 HOSPITAL COURSE: The patient stay is a 74-year-old female patient who was seen initially at [facility] Emergency Room. She was admitted to the ICU. She actually originally presented to emergency room of [facility] because of increased shortness of breath where she was extensively investigated and V/Q scan was read as high probability for pulmonary emboli. She was hypoxic at 70% on 4 liters. She was up to 90s and low 90s. The patient was continued to desaturate and was started on CPAP. Her chest x-ray showed she has bilateral lung infiltrate and was started on vancomycin, piperacillin as well as Lovenox and was transferred to [facility] where she continued to be extremely tachypneic and desaturated on room air, requiring FiO2 of 40% on BiPAP machine. She was treated with IV antibiotic, Lovenox, steroids and she did actually very well. She is now on 1 liter oxygen by nasal cannula. We switched Lovenox to Eliquis. While at [facility], she went into atrial fibrillation with rapid ventricular response, treated with metoprolol after initiating her with Cardizem drip and she did very well, remained hemodynamically stable and afebrile. A decision was made to discharge her to [facility] to continue with oral antibiotic. Continue with tapering course of steroids and Eliquis and to start the process of physical and occupational therapy. PHYSICAL EXAMINATION: GENERAL: When I saw her this morning, she looked well and was clearly in no apparent respiratory distress, slightly pale, not jaundiced, cyanosis or thyromegaly. No jugular venous distention. No limb edema. VITAL SIGNS: Her heart rate was 64, blood pressure was 131/61, temperature 97.4, respiratory rate was 16, and oxygen saturation was 95% on 1 liter of oxygen. HEAD, EYES, EARS, NOSE AND THROAT: Showed normocephalic, atraumatic. NECK: Supple. HEART: Showed normal first and second heart sounds. No gallop or murmur. CHEST: Clear to auscultation. No crepitation or rhonchi. ABDOMEN: Slightly distended, soft, nontender. NEUROLOGIC: She is awake, alert, responding appropriately. All cranial nerves are intact. She moves extremities without difficulty. She ambulates with a walker. Her intake and output were incompletely recorded. LABORATORY DATA: As of yesterday, her serum sodium was 141, potassium 3.9, chloride 101, bicarbonate 34, anion gap of 6, BUN 17, creatinine 1.2, estimated GFR was 44 mL per minute. Her glucose was 96 and calcium was 8.4. Her white cell count was 4400, hemoglobin 10, hematocrit 33, MCV 85 and platelet count 264,000. The patient was discharged to [facility]. FINAL DISCHARGE DIAGNOSES: 1. Acute respiratory failure, multifactorial. 2. Chronic obstructive pulmonary disease exacerbation. 3. Bilateral lung infiltrate consistent probably with community-acquired pneumonia versus acute on chronic diastolic congestive heart failure. 4. High probability V/Q scan for pulmonary emboli. CT scan of the chest could not be done because SHE IS ALLERGIC TO IODINE, IODIDE CONTAINING PRODUCTS. 5. New onset atrial fibrillation with rapid ventricular response. Her heart rate is much better controlled. 6. Hyperlipidemia, debility and deconditioning. Continue with physical therapy. SAMY OCONNOR MD DR: TRACEE/eduard JOB#: [id number] / [id number]
[2019-04-20 15:00] VITALS: BP 107/36
--- NOTE | 2019-04-20 17:00 | NUR ---
Discharge Note: [facility] [address] [place] [address] Discharge instructions and discharge home medications reviewed with Patient and a copy given. All questions have been answered and understanding verbalized. Discontinued lines and drains: Peripheral IV intact. [facility] transport via Wheelchair. Addendum: 04/20/19 at 1715 by EUGENE CARVER RN Report called to JENNIFER Rodriguez at [facility]. Pt at the bedside during transport.
[2019-04-22] MEDS ORDERED: ERGOCALCIFEROL (VITAMIN D2) 50,000 UNIT CAPSULE. PO SCH (09:00)
[2019-04-25] MEDS ORDERED: APIXABAN 5 MG TABLET. PO SCH (21:00)
== END 2019-04-20 17:00 | DRG 175 ==
LOC: 1 WEST ICU 16:52 → 6 SOUTH 04-17 15:57
PROVIDERS: ADMIT Internal Medicine; ATTEND Internal Medicine
PROC: 5A09357 Assistance with Respiratory Ventilation, Less than 24 Consecutive Hours, Continuous Positive Airway Pressure (ICD-10-PCS; principal; 2019-04-15)
DX: I26.99 Other pulmonary embolism without acute cor pulmonale (principal); J96.01 Acute respiratory failure with hypoxia; I50.33 Acute on chronic diastolic (congestive) heart failure; J18.9 Pneumonia, unspecified organism; R65.11 Systemic inflammatory response syndrome (SIRS) of non-infectious origin with acute organ dysfunction; K50.90 Crohn's disease, unspecified, without complications; I13.0 Hypertensive heart and chronic kidney disease with heart failure and stage 1 through stage 4 chronic kidney disease, or unspecified chronic kidney disease; J44.0 Chronic obstructive pulmonary disease with (acute) lower respiratory infection; J44.1 Chronic obstructive pulmonary disease with (acute) exacerbation; F41.9 Anxiety disorder, unspecified; K21.9 Gastro-esophageal reflux disease without esophagitis; M19.90 Unspecified osteoarthritis, unspecified site; E78.5 Hyperlipidemia, unspecified; I48.91 Unspecified atrial fibrillation; I25.10 Atherosclerotic heart disease of native coronary artery without angina pectoris; N18.9 Chronic kidney disease, unspecified; E11.22 Type 2 diabetes mellitus with diabetic chronic kidney disease; Z96.653 Presence of artificial knee joint, bilateral; E66.9 Obesity, unspecified; Z68.36 Body mass index [BMI] 36.0-36.9, adult; Z98.61 Coronary angioplasty status; Z93.3 Colostomy status; Z90.49 Acquired absence of other specified parts of digestive tract; Z88.8 Allergy status to other drugs, medicaments and biological substances; Z91.048 Other nonmedicinal substance allergy status; Z98.49 Cataract extraction status, unspecified eye; Z91.041 Radiographic dye allergy status; Z87.891 Personal history of nicotine dependence; Z82.49 Family history of ischemic heart disease and other diseases of the circulatory system
CPT/HCPCS: 36415; 80048; 80202; 82962; 83605; 84443; 85025; 85027; 87040; 93005; 93306; 94640; 94660; 94760; J1160; J1650; J1815; J2543; J3370; J3490; J7050; J7620; Q0163; G0378; J7030